=== PATIENT | female | born 1955 | race Caucasian/White ===

== ENCOUNTER 2019-12-10 17:10 | Outpatient (REF) | payer OTHER, SELFPAY ==
--- NOTE | 2019-12-10 17:13 | CT_ITS ---
EXAMINATION: CT SINUS WITHOUT CONTRAST CLINICAL INFORMATION: Polyp of nasal cavity. Deviated nasal septum. COMPARISON: None TECHNIQUE: 2 mm thin axial and reformatted 2 mm thin sagittal and coronal images of sinuses were obtained. This CT examination was performed using dose optimization techniques as appropriate, variously including the following: *Automated exposure control *Adjustment of mA and/or kV according to patient size (this includes techniques or standardized protocols for targeted exams where dose is matched to indication/reason for exam; i.e. extremities or head) *Use of iterative reconstruction technique DLP: 89 mGy-cm FINDINGS: There is normal aeration of bilateral frontal, sphenoid, ethmoid and maxillary sinuses without mucoperiosteal thickening or air-fluid levels. Bilateral ostiomeatal complex and frontoethmoidal recesses are widely patent. The bony sinus perales are intact. The cribriform plate appears symmetrical. The mary falciform is midline and appears unremarkable. NASAL CAVITY/NASOPHARYNX: The nasal cavity is clear. There is minimal deviation nasal septum to the left without a bony spur. The turbinates are symmetrical. No soft tissue mass seen in the nasal cavity or the nasopharynx. ADDITIONAL RELEVANT FINDINGS: No periapical disease is seen. The TMJs articulate normally. The orbits and skull base soft tissues are unremarkable. The middle ear cavities and mastoid air cells are clear. Limited evaluation demonstrates no acute intracranial findings. CT/CT sinus wo con IMPRESSION: Unremarkable CT sinus exam.
== END 2019-12-10 17:11 ==
LOC: HO.CT 17:10
PROVIDERS: Visit Provider Otolaryngology
DX: J33.0 Polyp of nasal cavity (principal); J34.2 Deviated nasal septum
CPT/HCPCS: 70486

== ENCOUNTER 2019-12-19 10:56 | Outpatient (REF) | payer OTHER, SELFPAY | END 2019-12-19 10:57 | disposition home or self-care (01) | LOC: HO.LNP 10:56 | PROVIDERS: Visit Provider Internal Medicine | DX: Z20.828 Contact with and (suspected) exposure to other viral communicable diseases (principal); J34.89 Other specified disorders of nose and nasal sinuses; R51.9 Headache, unspecified | CPT/HCPCS: U0003 ==

== ENCOUNTER 2020-03-16 13:55 | Outpatient (REF) | payer OTHER, SELFPAY ==
[2020-03-16 15:09] LABS: Estimated Average Glucose 151 mg/dL; Hemoglobin A1c % 6.9 %
[2020-03-16 15:12] LABS: Alanine Aminotransferase 44 U/L (0-31); Albumin Level 4.4 g/dL (3.5-5.0); Alkaline Phosphatase 76 U/L (39-117); Anion Gap 13 (12-20); Aspartate Amino Transferase 32 U/L (5-31); Bilirubin Total 0.6 mg/dL (0.0-1.0); Blood Urea Nitrogen 18 mg/dL (9-16); Calcium 9.6 mg/dL (8.4-10.2); Carbon Dioxide 28 mmol/L (22-29); Chloride 105 mmol/L (96-108); Estimated Glomerular Filt Rate > 60; Glucose Random 119 mg/dL (60-115); Potassium 4.7 mmol/L (3.3-5.1); Sodium 141 mmol/L (135-145); Total Protein 6.7 g/dL (6.5-8.0)
[2020-03-16 15:35] LABS: Creatinine Urine 177.35 mg/dL; Microalbum/Creatinine Ratio Ur 9.5 ug/mg cr
== END 2020-03-16 13:56 | disposition home or self-care (01) ==
LOC: HO.LAB 13:55
PROVIDERS: PCP Internal Medicine; Visit Provider Internal Medicine
DX: E11.9 Type 2 diabetes mellitus without complications (principal); I10 Essential (primary) hypertension; K58.9 Irritable bowel syndrome, unspecified
CPT/HCPCS: 36415; 80053; 82043; 83036

== ENCOUNTER 2020-09-04 20:37 | Emergency (ER) | payer OTHER, SELFPAY ==
--- NOTE | ~2020-09-04 | CT_ITS ---
EXAMINATION: CT ABDOMEN AND PELVIS WITH CONTRAST CLINICAL INFORMATION: Periumbilical pain COMPARISON: 12/31/2018 TECHNIQUE: Multidetector volumetric images were obtained from the superior aspect of the liver through the pubic symphysis following administration 85 mL of Omnipaque 350 intravenous contrast. Sagittal and coronal reformatted images were obtained on the technologist's workstation. Oral contrast: No This CT examination was performed using dose optimization techniques as appropriate, variously including the following: *Automated exposure control *Adjustment of mA and/or kV according to patient size (this includes techniques or standardized protocols for targeted exams where dose is matched to indication/reason for exam; i.e. extremities or head) *Use of iterative reconstruction technique DLP: 831 mGy-cm FINDINGS: LUNG BASES: The visualized lung bases are unremarkable. LIVER, GALLBLADDER, AND BILIARY TREE: The liver demonstrates hypoattenuation suggesting steatosis. No focal hepatic lesion or biliary ductal dilatation is present. Patient is status post cholecystectomy. PANCREAS: Unremarkable. SPLEEN: Unremarkable. ADRENAL GLANDS: Unremarkable. KIDNEYS AND URETERS: The kidneys are normal in size, shape, and attenuation. Lobulated contour noted bilaterally. No hydronephrosis, hydroureter, or obstructing calculi seen. No perinephric stranding. BLADDER: Unremarkable. GASTROINTESTINAL TRACT: The small and large bowel are unremarkable. The appendix is suspected to be collapsed. No free fluid or free air is seen. ABDOMINAL WALL: No significant hernia is appreciated. LYMPH NODES: Normal. VASCULAR: Scattered atherosclerotic calcifications are noted. PELVIC VISCERA: Patient is status post hysterectomy. OSSEOUS STRUCTURES: Degenerative changes are noted in the spine. CT/CT abdomen pelvis w con IMPRESSION: No acute findings identified in the abdomen/pelvis.
[2020-09-04 20:44] VITALS: BP 160/79; PULSE 65; RESP 20; TEMP 37.1; O2SAT 98; BMI 28.3
[2020-09-04 21:14] LABS: MANUAL DIFF FLAG NO
[2020-09-04 21:15] LABS: Basophils Absolute Auto 0.1 X10*3/uL (0.0-0.2); Basophils Percent Auto 0.6 % (0-2); Eosinophils Absolute Auto 0.3 X10*3/uL (0.0-0.4); Eosinophils Percent Auto 3.5 % (0-4); Hematocrit 41.4 % (37-47); Hemoglobin 14.3 g/dl (12.0-16.0); Imm Gran Abs Auto 0.03 X10*3/uL (0.00-0.03); Imm Gran Pct Auto 0.3 % (0.0-0.4); Lymphocytes Absolute Auto 2.6 X10*3/uL (1.2-4.9); Lymphocytes Percent Auto 29.2 % (20-40); Mean Corpuscular HGB Conc 34.5 g/dl (31.0-35.0); Mean Corpuscular Hemoglobin 31.4 pg (27.0-33.0); Mean Corpuscular Volume 90.8 fL (80-98); Mean Platelet Volume 10.5 fL (9.4-12.3); Monocytes Absolute Auto 0.6 X10*3/uL (0.1-1.2); Monocytes Percent Auto 6.8 % (2-11); Neutrophils Absolute Auto 5.3 X10*3/uL (2.0-8.3); Neutrophils Percent Auto 59.6 % (45-73); Platelet Count 155 X10*3/uL (160-400); Red Blood Count 4.56 X10*6/uL (4.20-5.50); Red Cell Distribution Width 13.3 % (11.0-16.0); White Blood Count 8.8 X10*3/uL (4.8-10.8)
[2020-09-04 21:42] LABS: Alanine Aminotransferase 46 U/L (0-31); Albumin Level 4.1 g/dL (3.5-5.0); Alkaline Phosphatase 83 U/L (39-117); Anion Gap 14 (12-20); Aspartate Amino Transferase 34 U/L (5-31); Bilirubin Direct 0.2 mg/dL (0.0-0.5); Bilirubin Total 0.4 mg/dL (0.0-1.0); Blood Urea Nitrogen 14 mg/dL (9-16); Calcium 10.5 mg/dL (8.4-10.2); Carbon Dioxide 27 mmol/L (22-29); Chloride 106 mmol/L (96-108); Estimated Glomerular Filt Rate 57; Glucose Random 188 mg/dL (60-115); Lipase 79 U/L (8-78); Sodium 143 mmol/L (135-145); Total Protein 6.5 g/dL (6.5-8.0)
--- NOTE | 2020-09-04 22:17 | ED_ITS ---
HPI - Abdominal Pain General Chief Complaint: Abdominal Pain Stated Complaint: ABD PAIN Time Seen by Provider: 09/04/20 20:38 Source: patient Mode of arrival: ambulatory Limitations: no limitations History of Present Illness HPI narrative: Patient comes emergency room complaining of periumbilical pain. Patient states started yesterday, states now it is radiating towards the right lower quadrant and towards the back. Patient denies vomiting or diarrhea. Patient states the pain is sharp, intermittent, at this time she has mild discomfort but no significant pain. Related Data Previous Rx's Medication Instructions Recorded hyoscyamine sulfate 0.125 mg PO QID #10 tab 09/05/20 simethicone 125 mg PO DAILY PRN #10 cap 09/05/20 Allergies Allergy/AdvReac Type Severity Reaction Status Date / Time sulfamethoxazole Allergy Intermediate HIVES Verified 09/04/20 20:43 [From BACTRIM] trimethoprim [From BACTRIM] Allergy Intermediate HIVES Verified 09/04/20 20:43 Sulfa (Sulfonamide Allergy Unknown Hives Verified 09/04/20 20:43 Antibiotics) Review of Systems Review of Systems Constitutional : No Weight loss, No Fever, No Chills, No Night Sweats, No Fatigue, No Malaise ENT/Mouth : No Hearing loss, No Ear Pain, No Nasal Congestion, No Sinus Pain, No Hoarseness, No sore throat, No Rhinorrhea, No Swallowing Difficulty Eyes: No Eye Pain, No Swelling, No Redness, No Foreign Body, No Discharge, No Vision Changes Cardiovascular : No Chest Pain, No SOB, No Dyspnea on Exertion, No Orthopnea, No Edema, No Palpitations Respiratory : No Cough, No Sputum, No Wheezing, No Smoke Exposure, No Dyspnea Gastrointestinal : No Nausea, No Vomiting, No Diarrhea, No Constipation, complaining of periumbilical pain radiating towards the back and right lower quadrant, No Hematochezia, No Melena Genitourinary : no irregular bleeding, No Dysuria, No Urinary Frequency, No Hematuria, No Urinary Incontinence, No Urgency, No Flank Pain, No Urinary Flow Changes, No Hesitancy Musculoskeletal : No joint pain, No Myalgias, No Joint Swelling Skin : No Skin Lesions, No rash Neuro : No Weakness, No Numbness, No Paresthesias, No Loss of Consciousness, No Dizziness, No Headache Psych : No Anxiety/Panic, No Depression, No SI/HI/AH/VH, No Social Issues, Heme/Lymph: No Bruising, No Bleeding,No Lymphadenopathy Endocrine : No Polyuria, No Polydipsia, No Temperature Intolerance Physical Exam Vital Signs: Vital Signs: Last Vital Signs Temp 97.5 F 09/04/20 22:29 Pulse 55 09/04/20 22:29 Resp 16 09/04/20 22:29 BP 169/91 H 09/04/20 22:29 Pulse Ox 97 09/04/20 22:29 Body Mass Index 28.3 Appearance: Alert. Oriented X3. No acute distress. Eyes: Pupils equal, round and reactive to light. ENT: Pharynx normal. Neck: Normal inspection. Neck supple. No lymph nodes noted. No crepitus CVS: Normal heart rate and rhythm. Pulses normal. Normal S1 and S2 Respiratory: No respiratory distress. Breath sounds normal. No Wheezing. No rales Abdomen: Soft , mild discomfort on deep palpation over the periumbilical area, no pain no McBurney's point, No rigidity. No distention. No flank pain bilaterally Skin: Skin warm and dry. Normal skin color. Normal skin turgor. Extremities: No lower extremity edema. No lower extremity edema. No Lacerations. No Rash Neuro: Oriented X 3. No motor deficit. No sensory deficit. Moving all extermities. No slurred speech. Course Course Course Narrative: I discussed with the patient that her labs and CT scan do not show any acute pathology. Patient's lipase is slightly bumped to 79, normal level 78, unlikely to be pancreatitis. At this time, patient states that she feels much better, no abdominal pain, only feels a bit bloated MDM - Abdominal Pain Lab Data Result diagrams: 09/04/20 21:08 09/04/20 21:08 Labs: Lab Results 09/04/20 09/04/20 09/05/20 Range/Units 21:08 21:08 00:09 WBC 8.8 (4.8-10.8) X10*3/uL RBC 4.56 (4.20-5.50) X10*6/uL Hgb 14.3 (12.0-16.0) g/dl Hct 41.4 (37-47) % MCV 90.8 (80-98) fL MCH 31.4 (27.0-33.0) pg MCHC 34.5 (31.0-35.0) g/dl RDW 13.3 (11.0-16.0) % Plt Count 155 L (160-400) X10*3/uL MPV 10.5 (9.4-12.3) fL Immature Gran % (Auto) 0.3 (0.0-0.4) % Neut % (Auto) 59.6 (45-73) % Lymph % (Auto) 29.2 (20-40) % [place] % (Auto) 6.8 (2-11) % Eos % (Auto) 3.5 (0-4) % Baso % (Auto) 0.6 (0-2) % Lymph # (Auto) 2.6 (1.2-4.9) X10*3/uL [place] # (Auto) 0.6 (0.1-1.2) X10*3/uL Eos # (Auto) 0.3 (0.0-0.4) X10*3/uL Baso # (Auto) 0.1 (0.0-0.2) X10*3/uL Abs Immat Gran (auto) 0.03 (0.00-0.03) X10*3/uL Absolute Neuts (auto) 5.3 (2.0-8.3) X10*3/uL Absolute Nucleated RBC 0.000 (0.0-0.012) X10*3/uL Nucleated RBC % (auto) 0.0 (0.0-0.2) /100WBC Sodium 143 (135-145) mmol/L Potassium 4.0 (3.3-5.1) mmol/L Chloride 106 (96-108) mmol/L Carbon Dioxide 27 (22-29) mmol/L Anion Gap 14 (12-20) BUN 14 (9-16) mg/dL Creatinine 0.98 (0.5-1.4) mg/dL Estim Creat Clear Calc 58.0 Estimated GFR 57 Random Glucose 188 H D (60-115) mg/dL Calcium 10.5 H D (8.4-10.2) mg/dL Total Bilirubin 0.4 (0.0-1.0) mg/dL Direct Bilirubin 0.2 (0.0-0.5) mg/dL AST 34 H (5-31) U/L ALT 46 H (0-31) U/L Alkaline Phosphatase 83 (39-117) U/L Total Protein 6.5 (6.5-8.0) g/dL Albumin 4.1 (3.5-5.0) g/dL Lipase 79 H (8-78) U/L Urine Color YELLOW Urine Appearance CLEAR Urine pH 6.0 (5.0-8.0) Ur Specific [place] 1.010 (1.005-1.025) Urine Protein NEG (NEG-TRACE) MG/DL Urine Glucose (UA) NEG (NEG) MG/DL Urine Ketones NEG (NEG) MG/DL Urine Blood 1+ H (NEG) Urine Nitrite NEG (NEG) Ur Leukocyte Esterase 1+ H (NEG) Urine RBC 5-9 H (0) /HPF Urine WBC 1-4 (0-4) /HPF Ur Squamous Epith Cells 2+ /LPF Urine Bacteria TRACE /LPF Imaging Data CT scan - abdomen: Radiologist's impression: FINDINGS: LUNG BASES: The visualized lung bases are unremarkable. LIVER, GALLBLADDER, AND BILIARY TREE: The liver demonstrates hypoattenuation suggesting steatosis. No focal hepatic lesion or biliary ductal dilatation is present. Patient is status post cholecystectomy. PANCREAS: Unremarkable. SPLEEN: Unremarkable. ADRENAL GLANDS: Unremarkable. KIDNEYS AND URETERS: The kidneys are normal in size, shape, and attenuation. Lobulated contour noted bilaterally. No hydronephrosis, hydroureter, or obstructing calculi seen. No perinephric stranding. BLADDER: Unremarkable. GASTROINTESTINAL TRACT: The small and large bowel are unremarkable. The appendix is suspected to be collapsed. No free fluid or free air is seen. ABDOMINAL WALL: No significant hernia is appreciated. LYMPH NODES: Normal. VASCULAR: Scattered atherosclerotic calcifications are noted. PELVIC VISCERA: Patient is status post hysterectomy. OSSEOUS STRUCTURES: Degenerative changes are noted in the spine. CT/CT abdomen pelvis w con IMPRESSION: No acute findings identified in the abdomen/pelvis. Discharge Plan Discharge Clinical Impression: Abdominal pain Qualifiers: Abdominal location: unspecified location Qualified Code(s): R10.9 - Unspecified abdominal pain Patient Disposition: Home, Self-Care Instructions: Abdominal Pain (ED) Additional Instructions: Please follow-up with your primary care physician tomorrow. If you have any worsening or new symptoms, please return to the emergency room or call 911 Prescriptions: New simethicone 125 mg capsule 125 mg PO DAILY PRN (Reason: abdominal distention) Qty: 10 RF: 0 hyoscyamine sulfate 0.125 mg tablet 0.125 mg PO QID Qty: 10 RF: 0 PMFSH Past Medical History Medical History Allergies Diabetes Hypertension Social History Social History Advance Directives: No Advance Directives Information Provided: Yes
[2020-09-04 22:29] VITALS: BP 169/91; PULSE 55; RESP 16; TEMP 36.4; O2SAT 97
[2020-09-04] MEDS: iohexoL 350 MG/ML 100 ML INFUS..BTL 85 ML IV (23:45)
[2020-09-05 00:26] LABS: Glucose Urine UA NEG (NEG); Leukocyte Esterase Urine 1+ (NEG); Nitrite Urine NEG (NEG); UACC Culture Trigger YES; Urine Blood 1+ (NEG); Urine Ketones NEG (NEG); Urine Protein NEG (NEG-TRACE)
[2020-09-05 00:38] LABS: Appearance Urine CLEAR; Color Urine YELLOW
[2020-09-05 00:42] LABS: Bacteria Urine TRACE /LPF; Squamous Epithelial Cell Urine 2+ /LPF
== END 2020-09-05 01:13 | disposition home or self-care (01) ==
PROVIDERS: Emergency Provider Emergency Medicine; PCP Internal Medicine
DX: R10.9 Unspecified abdominal pain (principal); E11.9 Type 2 diabetes mellitus without complications; I10 Essential (primary) hypertension
CPT/HCPCS: 36415; 74177; 80053; 80076; 81001; 81003; 83690; 85025; 87086; 99284; Q9967

== ENCOUNTER 2020-11-06 07:53 | Outpatient (REF) | payer OTHER, SELFPAY ==
--- NOTE | ~2020-11-06 | MM_ITS ---
EXAMINATION: MM SCREENING DIGITAL BREAST TOMOSYNTHESIS, BILATERAL CLINICAL INFORMATION: Screening. Asymptomatic. The lifetime risk of breast cancer based on the Tyrer-Cuzick Model is 11%. COMPARISON: Mammography: 08/21/2018, 07/25/2017, 06/15/2016 TECHNIQUE: Digital breast tomosynthesis is performed in both the craniocaudal and mediolateral oblique views along with computer-aided detection (CAD). Synthesized 2D images are generated from the tomosynthesis. FINDINGS: There are scattered areas of fibroglandular density (ACR BI-RADS breast composition Category b). Breast tissue composition borders on predominantly fatty. The left breast shows no interval mass or architectural abnormality or developing density. Neither breast shows abnormal calcifications. The bilateral axilla and skin contours are unremarkable. The right breast has a new focal asymmetric density posterior 3:00 position 10.5 cm from nipple measuring 7 x 4 x 3 mm. Patient will be recalled for additional imaging. MM/MM tomosynthesis screening BI IMPRESSION: 1. Right: New focal asymmetric density posterior 3:00 position under 1 cm. 2. Left: There are no significant changes from prior study. ASSESSMENT: BI-RADS 0: Incomplete - Need Additional Imaging Evaluation RECOMMENDATION: 1. Additional views of the right breast for margins (3D spot CC; 3D spot ML). 2. Targeted ultrasound right breast. 3. Radiology department staff will contact the patient for additional imaging. This patient's information was entered into a reminder system with a target due date for their next mammogram.
== END 2020-11-06 07:54 | disposition home or self-care (01) ==
LOC: HO.MAMMO 07:53
PROVIDERS: PCP Internal Medicine; Visit Provider Internal Medicine
DX: Z12.31 Encounter for screening mammogram for malignant neoplasm of breast (principal)
CPT/HCPCS: 77063; 77067

== ENCOUNTER 2020-11-24 14:14 | Outpatient (REF) | payer OTHER, SELFPAY ==
--- NOTE | ~2020-11-24 | MM_ITS ---
EXAMINATION: MM DIAGNOSTIC DIGITAL BREAST TOMOSYNTHESIS, RIGHT CLINICAL INFORMATION: Focal asymmetric density posterior 3:00 position COMPARISON: Mammography: November 06, 2020 and studies dating back to July 26, 2011 TECHNIQUE: Digital breast tomosynthesis is performed. 2D images are generated from the tomosynthesis. The following views are obtained: 90 degree medial lateral and spot compression views in mediolateral oblique and craniocaudal projections. FINDINGS: There are scattered areas of fibroglandular density (ACR BI-RADS breast composition Category b). Additional views seem to show changing in appearance of the density in craniocaudal projection with the lesion measuring approximately 6 x 2 x 2 mm in size. At the time of the study I did not get an ultrasound due to changeable appearance of the density however on further review at time of dictation I think ultrasound evaluation is necessary for complete evaluation of the lesion. Radiology staff will notify patient to obtain this study. MM/MM tomosynthesis added views R IMPRESSION: Incomplete evaluation of the right breast due to not obtaining ultrasound at time of the mammographic study. ASSESSMENT: BI-RADS 0: Incomplete - Need Additional Imaging Evaluation RECOMMENDATION: Right breast ultrasound
== END 2020-11-24 14:15 | disposition home or self-care (01) ==
LOC: HO.MAMMO 14:14
PROVIDERS: Visit Provider Internal Medicine
DX: R92.2 Inconclusive mammogram (principal)
CPT/HCPCS: 77061; 77065

== ENCOUNTER 2020-11-30 12:41 | Outpatient (REF) | payer OTHER, SELFPAY ==
--- NOTE | ~2020-11-30 | US_ITS ---
EXAMINATION: US DIAGNOSTIC ULTRASOUND BREAST, RIGHT CLINICAL INFORMATION: Short linear asymmetric density on mammography. Assess for ultrasound correlate. COMPARISON: 11/24/2020, 11/06/2020 (BI-RADS 0), 03/18/2015, 03/13/2015. TECHNIQUE: Ultrasound right breast is targeted to the medial aspect and inferior medial quadrant. Grayscale imaging and color Doppler are performed without and with harmonics. Patient is imaged with arm up and arm down and right posterior oblique. FINDINGS: There is no cystic or solid mass or architectural abnormality. No focal duct ectasia. No ultrasound correlate for recent mammography finding. Review of the recent diagnostic mammography shows short circumscribed linear focal asymmetric density posterior inferior medial breast. Finding is less conspicuous on the additional views. No spiculation or associated calcification. Results and management options were discussed with the patient. Short interval follow-up right mammography will be performed. US/US breast RT limited IMPRESSION: No ultrasound correlate for the short linear asymmetric density posterior medial right breast noted on recent imaging. ASSESSMENT: BI-RADS 3: Probably Benign RECOMMENDATION: Diagnostic right mammography in 6 months. This patient's information was entered into a reminder system with a target due date for their next mammogram.
== END 2020-11-30 12:42 | disposition home or self-care (01) ==
LOC: HO.MAMMO 12:41
PROVIDERS: Visit Provider Internal Medicine
DX: R92.2 Inconclusive mammogram (principal)
CPT/HCPCS: 76642

== ENCOUNTER 2020-12-20 15:14 | Outpatient (REF) | payer OTHER, SELFPAY ==
[2020-12-20 15:29] LABS: MANUAL DIFF FLAG NO
[2020-12-20 16:07] LABS: Basophils Percent Auto 0.6 % (0-2); Eosinophils Absolute Auto 0.2 X10*3/uL (0.0-0.4); Eosinophils Percent Auto 3.7 % (0-4); Hematocrit 39.9 % (37.0-47.0); Hemoglobin 13.4 g/dl (12.0-16.0); Imm Gran Abs Auto 0.02 X10*3/uL (0.00-0.03); Imm Gran Pct Auto 0.3 % (0.0-0.4); Lymphocytes Absolute Auto 2.1 X10*3/uL (1.2-4.9); Lymphocytes Percent Auto 33.2 % (20-40); Mean Corpuscular HGB Conc 33.6 g/dl (31.0-35.0); Mean Corpuscular Hemoglobin 30.9 pg (27.0-33.0); Mean Corpuscular Volume 92.1 fL (80.0-98.0); Mean Platelet Volume 10.6 fL (9.4-12.3); Monocytes Absolute Auto 0.5 X10*3/uL (0.1-1.2); Monocytes Percent Auto 7.7 % (2-11); Neutrophils Absolute Auto 3.4 x10*3/uL (2.0-8.3); Neutrophils Percent Auto 54.5 % (45-73); Platelet Count 143 X10*3/uL (160-400); Red Blood Count 4.33 X10*6/uL (4.20-5.50); Red Cell Distribution Width 13.4 % (11.0-16.0); White Blood Count 6.2 X10*3/uL (4.8-10.8)
[2020-12-20 16:11] LABS: Estimated Average Glucose 203 mg/dL; Hemoglobin A1c % 8.7 %
[2020-12-20 16:24] LABS: Alanine Aminotransferase 39 U/L (0-31); Alkaline Phosphatase 81 U/L (39-117); Anion Gap 12 (12-20); Aspartate Amino Transferase 34 U/L (5-31); Bilirubin Total 0.5 mg/dL (0.0-1.0); Blood Urea Nitrogen 13 mg/dL (9-16); Calcium 9.7 mg/dL (8.4-10.2); Carbon Dioxide 27 mmol/L (22-29); Chloride 106 mmol/L (96-108); Estimated Glomerular Filt Rate > 60; Glucose Random 219 mg/dL (60-115); Potassium 4.1 mmol/L (3.3-5.1); Sodium 141 mmol/L (135-145); Total Protein 6.3 g/dL (6.5-8.0)
[2020-12-20 17:55] LABS: Appearance Urine HAZY; Color Urine YELLOW; Creatinine Urine 194.77 mg/dL; Glucose Urine UA NEG (NEG); Leukocyte Esterase Urine TRACE (NEG); Nitrite Urine NEG (NEG); PH 5.5 (5.0-8.0); Specific Gravity - Urine >= 1.030 (1.005-1.025); Urine Blood NEG (NEG); Urine Ketones NEG (NEG); Urine Protein NEG (NEG-TRACE)
[2020-12-20 18:03] LABS: Microalbum/Creatinine Ratio Ur 8.7 ug/mg cr
[2020-12-20 19:30] LABS: Bacteria Urine TRACE /LPF; Calcium Oxalate Crystals Urine 1+ /LPF; Squamous Epithelial Cell Urine 4+ /LPF
[2020-12-23 16:35] LABS: Gliadin Deamidated IgA Ab <1.0 U/mL; Gliadin Deamidated IgG Ab <1.0 U/mL; Transglutaminase Ab IgG <1.0 U/mL
== END 2020-12-20 15:15 | disposition home or self-care (01) ==
LOC: HO.LAB 15:14
PROVIDERS: PCP Internal Medicine; Visit Provider Internal Medicine
DX: E11.9 Type 2 diabetes mellitus without complications (principal); I10 Essential (primary) hypertension; K58.9 Irritable bowel syndrome, unspecified; K21.9 Gastro-esophageal reflux disease without esophagitis
CPT/HCPCS: 36415; 80053; 81001; 82043; 83036; 83516; 85025

== ENCOUNTER 2021-02-22 10:35 | Outpatient (REF) | payer OTHER, SELFPAY ==
[2021-02-22 14:10] LABS: Estimated Average Glucose 151 mg/dL; Hemoglobin A1c % 6.9 %
[2021-02-22 14:37] LABS: Alanine Aminotransferase 41 U/L (0-31); Albumin Level 4.2 g/dL (3.5-5.0); Alkaline Phosphatase 68 U/L (39-117); Anion Gap 13 (12-20); Aspartate Amino Transferase 35 U/L (5-31); Bilirubin Total 0.5 mg/dL (0.0-1.0); Blood Urea Nitrogen 23 mg/dL (9-16); Calcium 9.8 mg/dL (8.4-10.2); Carbon Dioxide 23 mmol/L (22-29); Chloride 110 mmol/L (96-108); Estimated Glomerular Filt Rate 58; Glucose Random 129 mg/dL (60-115); Sodium 142 mmol/L (135-145); Total Protein 6.7 g/dL (6.5-8.0)
== END 2021-02-22 10:36 | disposition home or self-care (01) ==
LOC: HO.10HDL 10:35
PROVIDERS: Visit Provider Internal Medicine
DX: E11.9 Type 2 diabetes mellitus without complications (principal); I10 Essential (primary) hypertension; K58.9 Irritable bowel syndrome, unspecified; R79.89 Other specified abnormal findings of blood chemistry
CPT/HCPCS: 36415; 80053; 83036

== ENCOUNTER 2021-03-14 09:19 | Day surgery (SDC) | payer OTHER, SELFPAY ==
[2021-03-08 14:57] VITALS: BMI 30.6
[2021-03-09 10:16] VITALS: BMI 30.1
--- NOTE | 2021-03-11 10:35 | P.CONAN_ITS ---
Documented by User: Ann Greenwood NP 03/11/21 10:36 HPI - Anesthesia Eval Consult details Narrative: 66yo F for Upper Endoscopy and Colonoscopy [facility] Past Medical History Medical History (Updated 03/09/21 @ 10:16 by Elza Palacio, LONNIE) Arthritis Diabetes Environmental allergies Hx of cervical cancer Hypertension IBS (irritable bowel syndrome) Murmur, cardiac Seasonal allergies Surgical History Surgical History (Updated 03/08/21 @ 14:42 by Elza Palacio, RN) History of total abdominal hysterectomy Hx of cholecystectomy Hx of colonoscopy Social History Social History (Updated 03/09/21 @ 10:20 by Elza Palacio, LONNIE) Are you a primary clinical care coordinator to a significant other at home: No Do you presently have visiting nurse or other home services: No Patient Tobacco Use Status: Never used Tobacco Use of substances other than those prescribed or required for medical reasons: No Are you DNR?: No Advance Directives: No Advance Directives Information Provided: Yes Advance Directives on File: No Recently lost weight without trying: Yes How much weight loss: 2-13 pounds Eating poorly because of decreased appetite: Yes Nutrition screen score: 4 Meds Allergies Allergy/AdvReac Type Severity Reaction Status Date / Time sulfamethoxazole Allergy Intermediate HIVES Verified 03/09/21 10:14 [From BACTRIM] trimethoprim [From Allergy Intermediate HIVES Verified 03/09/21 10:14 BACTRIM] Sulfa (Sulfonamide Allergy Unknown Hives Verified 03/09/21 10:14 Antibiotics) Home Medications Medication Instructions Recorded Confirmed Last Taken Type atenolol 25 mg 1 tab PO DAILY 03/08/21 03/08/21 Unknown History tablet azelastine 205.5 1 spray 03/08/21 03/08/21 Unknown History mcg (0.15 %) INTRANASAL BID nasal spray fluticasone 1 spray 03/08/21 03/08/21 Unknown History propionate 50 INTRANASAL BID mcg/actuation nasal spray,suspension glipizide 2.5 mg 2.5 mg PO DAILY 03/08/21 03/08/21 Unknown History tablet, extended release 24 hr metformin 500 mg 1 tab PO BID 03/08/21 03/08/21 Unknown History tablet omeprazole 20 mg 20 mg PO DAILY 03/09/21 03/09/21 Unknown History capsule,delayed release Exam Exam Date and Time: March 11, 2021 1035 Height,Weight and Vital Signs: Height 5 ft 3 in Weight 77.111 kg Pertinent Lab Results Pertinent Lab Results: Laboratory Tests 12/20/20 02/22/21 15:28 10:40 WBC 6.2 Hgb 13.4 Hct 39.9 Plt Count 143 L Sodium 142 Potassium 4.0 Chloride 110 H Carbon Dioxide 23 BUN 23 H Creatinine 0.96 Assessment and Plan Assessment Anesthesia Assessment: Chart Reviewed Documented by User: Christina Mendoza MD 03/14/21 10:31 [facility] Past Medical History Medical History (Updated 03/09/21 @ 10:16 by Elza Palacio, RN) Arthritis Diabetes Environmental allergies Hx of cervical cancer Hypertension IBS (irritable bowel syndrome) Murmur, cardiac Seasonal allergies Family History Family history of problems with anesthesia: No Surgical History Surgical History (Updated 03/08/21 @ 14:42 by Elza Palacio, RN) History of total abdominal hysterectomy Hx of cholecystectomy Hx of colonoscopy History of Problems with Anesthesia: No Social History Social History (Updated 03/09/21 @ 10:20 by Elza Palacio, RN) Are you a primary clinical care coordinator to a significant other at home: No Do you presently have visiting nurse or other home services: No Patient Tobacco Use Status: Never used Tobacco Use of substances other than those prescribed or required for medical reasons: No Are you DNR?: No Advance Directives: No Advance Directives Information Provided: Yes Advance Directives on File: No Recently lost weight without trying: Yes How much weight loss: 2-13 pounds Eating poorly because of decreased appetite: Yes Nutrition screen score: 4 Meds Allergies Allergy/AdvReac Type Severity Reaction Status Date / Time sulfamethoxazole Allergy Intermediate HIVES Verified 03/09/21 10:14 [From BACTRIM] trimethoprim [From Allergy Intermediate HIVES Verified 03/09/21 10:14 BACTRIM] Sulfa (Sulfonamide Allergy Unknown Hives Verified 03/09/21 10:14 Antibiotics) Home Medications Medication Instructions Recorded Confirmed Last Taken Type atenolol 25 mg 1 tab PO DAILY 03/08/21 03/08/21 Unknown History tablet azelastine 205.5 1 spray 03/08/21 03/08/21 Unknown History mcg (0.15 %) INTRANASAL BID nasal spray fluticasone 1 spray 03/08/21 03/08/21 Unknown History propionate 50 INTRANASAL BID mcg/actuation nasal spray,suspension glipizide 2.5 mg 2.5 mg PO DAILY 03/08/21 03/08/21 Unknown History tablet, extended release 24 hr metformin 500 mg 1 tab PO BID 03/08/21 03/08/21 Unknown History tablet omeprazole 20 mg 20 mg PO DAILY 03/09/21 03/09/21 Unknown History capsule,delayed release Exam Airway Mallampati Class: II TM Dist: >3cm Neck ROM: Full Heart: rrr Lungs: cta Assessment and Plan Assessment Anesthesia Assessment: Anesthesia Plan Discussed and Chart Reviewed Final Anesthetic Review Family History of Problems with Anesthesia: No History of Problems with Anesthesia: No NPO: Yes ASA Class: II Final Preanesthetic Review: No Changes in Pt Med Stat, Meds/Allgs Chart Reviewed and Consent Obtained/Reviewed Patient Risk: Intermediate Procedure Risk: Intermediate Anesthetic Plan Anesthetic Plan: MAC: Disposition: Standard PACU
[2021-03-14] MEDS: Lactated Ringers 1,000 ML 100 ML IVCONT (10:36)
[2021-03-14 10:42] LABS: Glucose, Whole Blood 104 mg/dL (60-115)
[2021-03-14 11:46] VITALS: BP 118/67; PULSE 61; RESP 16; TEMP 36.3; O2SAT 98
--- NOTE | 2021-03-14 11:54 | PM.OP ---
Brief Operative Note Date of Service: 03/14/21 Pre-op diagnosis: GERD, Screening, Change in Bowel habits Post-op diagnosis: other (Gastritis, R/O Celiac disease, R/O Microscopic colits, Rectal polyp) Procedure: EGD with biopsies, Colonoscopy to the cecum and TI with bx/removal of polyp, and biopsies Surgeon: Lanre Palomo Anesthesia: MAC Was an Logging Tractor Operator used for this Procedure?: No Estimated blood loss (mL): 2.0 Pathology: other (A. Descending duodenum B. Gastric antrum C. Ascending colon D. Descending coion E. Rectal polyp) Condition: stable Disposition: PACU
[2021-03-14 12:01] VITALS: BP 122/66; PULSE 53; RESP 18; TEMP 36.3; O2SAT 98
--- NOTE | 2021-03-14 22:24 | OP_ITS ---
SURGEON: Lanre Palomo MD INDICATIONS: The patient presents for evaluation of gastroesophageal reflux, irregular bowel movements, personal history of tubular adenoma of the colon, and colorectal cancer screening. Full consent was obtained from her for both procedures, including risks of bleeding and perforation. PREOPERATIVE DIAGNOSIS: POSTOPERATIVE DIAGNOSIS: PROCEDURE PERFORMED: Esophagogastroduodenoscopy with biopsies, colonoscopy to the cecum and terminal ileum with biopsies, and biopsy and removal of polyp. ESTIMATED BLOOD LOSS: COMPLICATIONS: ANESTHESIA: Monitored anesthesia care. ASSISTANTS: SPECIMENS: PREOPERATIVE DIAGNOSES: Gastroesophageal reflux, change in bowel habits, colorectal cancer screening, and personal history of tubular adenoma of the colon. POSTOPERATIVE DIAGNOSES: Gastroesophageal reflux, change in bowel habits, colorectal cancer screening, personal history of tubular adenoma of the colon, small hiatal hernia, gastritis, rule out celiac disease, colon polyp, rule out microscopic colitis, diverticulosis, internal and external hemorrhoids. DESCRIPTION OF PROCEDURE: The patient was placed in the left lateral decubitus position. The Olympus video gastroscope was passed in the posterior oropharynx and upper esophagus under direct vision. The scope was passed slowly into the distal esophagus. The gastroesophageal junction appeared normal at 35 cm. There was no sign of any esophagitis nor Aguirre esophagus. There was a small hiatal hernia. The scope was advanced to pylorus and the duodenum was cannulated in the descending portion. The duodenum including the bulb appeared normal without mass or ulceration. Biopsies were obtained from the descending duodenum. The scope was withdrawn back in the stomach. The gastric antrum had some mild areas of gastritis with erythema, edema, and some friability, but there were no erosions or ulcerations. There was good peristalsis. The scope was retroflexed visualizing the proximal stomach carefully, which appeared normal, without any sign of mass or ulceration. The scope was straightened. Biopsies were obtained from the gastric antrum. The scope was withdrawn back in the esophagus. The esophageal mucosa appeared normal. The scope was withdrawn from the patient. She was turned around for the colonoscopy. The digital rectal exam revealed external hemorrhoids. The Olympus video pediatric colonoscope was entered into the rectum advanced to the cecum with the assistance of abdominal wall pressure. Once in the cecum, I did identify normal-appearing cecal pouch with appendiceal orifice and a normal-appearing ileocecal valve. The terminal ileum was cannulated and appeared normal. The scope was withdrawn back in the colon. The entire cecum and ileocecal valve appeared normal. The scope was slowly withdrawn assessing all mucosal surfaces carefully. Preparation was excellent. There was no sign of any colitis nor angiodysplasia. Random biopsies were obtained in the ascending and descending colon. There was a mild amount of sigmoid diverticulosis. In the rectum, there was a 3 or 4 mm polyp, which was biopsied and completely removed with cold biopsy forceps. The scope was retroflexed visualizing internal hemorrhoids, but no other pathology. The rectal mucosa otherwise appeared normal. The scope was straightened and withdrawn from the patient. She tolerated both procedures well and was returned to the recovery area in stable condition. IMPRESSION: 1. Small hiatal hernia. 2. Gastritis. 3. Rule out celiac disease. 4. Rule out microscopic colitis. 5. Rectal polyp. 6. Diverticulosis. 7. Internal and external hemorrhoids. PLAN: The results of the biopsies will be checked. I would recommend repeat colonoscopy in 5 years for further screening. She was advised to continue her current regimen of daily Prilosec for relief of her reflux. She was advised to not use any aspirin and NSAIDs for at least 1 week, but to hopefully try to avoid them prison. She was advised to continue her antispasmodic for the irritable bowel syndrome. If things are stable, she will see me on a p.r.n. basis. MD WARD Chris/NAVDEEP / [phone]
== END 2021-03-14 13:04 | disposition home or self-care (01) ==
PROVIDERS: PCP Internal Medicine; Visit Provider Internal Medicine
PROC: (CPT 45380; principal; 2021-03-14 10:30)
DX: Z12.11 Encounter for screening for malignant neoplasm of colon (principal); Z86.010 Personal history of colon polyps; K63.5 Polyp of colon; K62.1 Rectal polyp; K57.30 Diverticulosis of large intestine without perforation or abscess without bleeding; K64.8 Other hemorrhoids; K64.4 Residual hemorrhoidal skin tags; K58.1 Irritable bowel syndrome with constipation; K21.9 Gastro-esophageal reflux disease without esophagitis; K29.50 Unspecified chronic gastritis without bleeding; K44.9 Diaphragmatic hernia without obstruction or gangrene; J30.2 Other seasonal allergic rhinitis; I10 Essential (primary) hypertension; E11.9 Type 2 diabetes mellitus without complications; Z79.84 Long term (current) use of oral hypoglycemic drugs; Z79.51 Long term (current) use of inhaled steroids; Z79.899 Other long term (current) drug therapy; Z88.2 Allergy status to sulfonamides; Z85.41 Personal history of malignant neoplasm of cervix uteri; Z92.3 Personal history of irradiation; Z90.710 Acquired absence of both cervix and uterus; Z90.49 Acquired absence of other specified parts of digestive tract
CPT/HCPCS: 45380; 43239; 82947; 88305; 88342

== ENCOUNTER 2021-05-09 16:18 | Outpatient (REF) | payer OTHER, SELFPAY ==
--- NOTE | ~2021-05-09 | XR_ITS ---
EXAMINATION: XR CERVICAL SPINE CLINICAL INFORMATION: Assess OA COMPARISON: . TECHNIQUE: 3 views of the cervical spine were obtained. FINDINGS: There is normal cervical lordosis. The vertebral heights, alignment and disc heights are normal. There is bilateral mild narrowing of neural foramina C3-C4, C4-C5 and C5-C6 disc level from mild bilateral facet joint arthropathy. No acute fracture or lytic process seen. No lytic or sclerotic process seen. The prevertebral soft tissues are normal. XR/XR cervical spine 4V IMPRESSION: Bilateral facet joint arthropathy C5-C6, C4-C5 and C3-C4 disc levels. No acute fracture or dislocation seen.
[2021-05-09 16:34] LABS: MANUAL DIFF FLAG NO
[2021-05-09 16:48] LABS: Basophils Percent Auto 0.4 % (0-2); Eosinophils Absolute Auto 0.3 X10*3/uL (0.0-0.4); Eosinophils Percent Auto 4.2 % (0-4); Hematocrit 39.8 % (37.0-47.0); Hemoglobin 13.1 g/dl (12.0-16.0); Imm Gran Abs Auto 0.04 X10*3/uL (0.00-0.03); Imm Gran Pct Auto 0.5 % (0.0-0.4); Lymphocytes Absolute Auto 2.6 X10*3/uL (1.2-4.9); Lymphocytes Percent Auto 34.3 % (20-40); Mean Corpuscular HGB Conc 32.9 g/dl (31.0-35.0); Mean Corpuscular Hemoglobin 29.7 pg (27.0-33.0); Mean Corpuscular Volume 90.2 fL (80.0-98.0); Mean Platelet Volume 10.3 fL (9.4-12.3); Monocytes Absolute Auto 0.5 X10*3/uL (0.1-1.2); Monocytes Percent Auto 6.6 % (2-11); Neutrophils Absolute Auto 4.1 x10*3/uL (2.0-8.3); Platelet Count 196 X10*3/uL (160-400); Red Blood Count 4.41 X10*6/uL (4.20-5.50); Red Cell Distribution Width 12.8 % (11.0-16.0); White Blood Count 7.7 X10*3/uL (4.8-10.8)
[2021-05-09 16:54] LABS: Estimated Average Glucose 137 mg/dL; Hemoglobin A1c % 6.4 %
[2021-05-09 17:05] LABS: Alanine Aminotransferase 38 U/L (0-31); Albumin Level 4.3 g/dL (3.5-5.0); Alkaline Phosphatase 77 U/L (39-117); Anion Gap 11 (12-20); Aspartate Amino Transferase 42 U/L (5-31); Bilirubin Total 0.4 mg/dL (0.0-1.0); Blood Urea Nitrogen 17 mg/dL (9-16); C Reactive Protein 0.24 mg/dL (< or = 0.50); Calcium 10.2 mg/dL (8.4-10.2); Carbon Dioxide 29 mmol/L (22-29); Chloride 107 mmol/L (96-108); Estimated Glomerular Filt Rate > 60; Glucose Random 109 mg/dL (60-115); Potassium 3.9 mmol/L (3.3-5.1); Sodium 143 mmol/L (135-145); Total Protein 6.7 g/dL (6.5-8.0)
[2021-05-09 17:26] LABS: Vitamin D 25-OH Total 23.4 ng/mL (>30)
== END 2021-05-09 16:19 | disposition home or self-care (01) ==
LOC: HO.LAB 16:18
PROVIDERS: PCP Internal Medicine; Visit Provider Internal Medicine
DX: M54.2 Cervicalgia (principal); E11.9 Type 2 diabetes mellitus without complications; I10 Essential (primary) hypertension; K58.9 Irritable bowel syndrome, unspecified; R63.4 Abnormal weight loss; E55.9 Vitamin D deficiency, unspecified
CPT/HCPCS: 36415; 72050; 80053; 82306; 83036; 85025; 86140

== ENCOUNTER 2021-05-25 13:19 | Outpatient (REF) | payer OTHER, SELFPAY ==
--- NOTE | ~2021-05-25 | MM_ITS ---
EXAMINATION: MM DIAGNOSTIC DIGITAL BREAST TOMOSYNTHESIS, RIGHT CLINICAL INFORMATION: Short interval six-month follow-up probable benign focal asymmetric density posterior 3:00 right breast. The lifetime risk of breast cancer based on the Tyrer-Cuzick Model is 8%. COMPARISON: Mammography: 11/24/2020, 11/06/2020 (BI-RADS 0), 08/21/2018; ultrasound right breast 11/30/2020. TECHNIQUE: Digital breast tomosynthesis is performed in both the craniocaudal and mediolateral oblique views along with computer-aided detection (CAD). Synthesized 2D images are generated from the tomosynthesis. FINDINGS: There are scattered areas of fibroglandular density (ACR BI-RADS breast composition Category b). The finding posterior medial right breast is nearly completely resolved, only a tiny oval density noted in this area on CC tomography. No MLO correlate. There is no architectural abnormality. Remainder right breast unremarkable. Management plan is for diagnostic mammography at time of annual mammography, due in 6 months to confirm stability or further decrease. Results are provided to the patient at time of visit by the technologist. MM/MM tomosynthesis diagnostic RT IMPRESSION: Finding posterior medial right breast is nearly completely resolved, only small oval density noted on CC tomography in this area. Will reassess at annual mammography to conclude surveillance. ASSESSMENT: BI-RADS 3: Probably Benign RECOMMENDATION: Diagnostic mammography at time of annual bilateral mammography, due in 6 months. This patient's information was entered into a reminder system with a target due date for their next mammogram.
== END 2021-05-25 13:20 | disposition home or self-care (01) ==
LOC: HO.MAMMO 13:19
PROVIDERS: Visit Provider Internal Medicine
DX: R92.2 Inconclusive mammogram (principal)
CPT/HCPCS: 77061; 77065

== ENCOUNTER 2021-10-27 06:13 | Outpatient (REF) | payer OTHER, SELFPAY ==
[2021-10-27 06:30] LABS: MANUAL DIFF FLAG NO
[2021-10-27 07:23] LABS: Basophils Absolute Auto 0.1 X10*3/uL (0.0-0.2); Basophils Percent Auto 0.8 % (0-2); Eosinophils Absolute Auto 0.2 X10*3/uL (0.0-0.4); Eosinophils Percent Auto 2.5 % (0-4); Hematocrit 42.2 % (37.0-47.0); Hemoglobin 14.2 g/dl (12.0-16.0); Imm Gran Abs Auto 0.03 X10*3/uL (0.00-0.03); Imm Gran Pct Auto 0.4 % (0.0-0.4); Lymphocytes Absolute Auto 2.3 X10*3/uL (1.2-4.9); Lymphocytes Percent Auto 29.5 % (20-40); Mean Corpuscular HGB Conc 33.6 g/dl (31.0-35.0); Mean Corpuscular Hemoglobin 29.8 pg (27.0-33.0); Mean Corpuscular Volume 88.7 fL (80.0-98.0); Mean Platelet Volume 10.9 fL (9.4-12.3); Monocytes Absolute Auto 0.7 X10*3/uL (0.1-1.2); Monocytes Percent Auto 8.5 % (2-11); Neutrophils Absolute Auto 4.6 x10*3/uL (2.0-8.3); Neutrophils Percent Auto 58.3 % (45-73); Platelet Count 180 X10*3/uL (160-400); Red Blood Count 4.76 X10*6/uL (4.20-5.50); Red Cell Distribution Width 13.2 % (11.0-16.0); White Blood Count 7.9 X10*3/uL (4.8-10.8)
[2021-10-27 07:31] LABS: Estimated Average Glucose 146 mg/dL; Hemoglobin A1c % 6.7 %
[2021-10-27 07:55] LABS: Creatinine Urine 177.47 mg/dL; Microalbum/Creatinine Ratio Ur 22.5 ug/mg cr
[2021-10-27 07:57] LABS: Alanine Aminotransferase 36 U/L (0-31); Albumin Level 4.1 g/dL (3.5-5.0); Alkaline Phosphatase 83 U/L (39-117); Anion Gap 15 (12-20); Aspartate Amino Transferase 32 U/L (5-31); Bilirubin Total 0.7 mg/dL (0.0-1.0); Blood Urea Nitrogen 19 mg/dL (9-16); Calcium 9.8 mg/dL (8.4-10.2); Carbon Dioxide 25 mmol/L (22-29); Chloride 108 mmol/L (96-108); Cholesterol 210 mg/dL; Estimated Glomerular Filt Rate > 60; Glucose Fasting 143 mg/dL (60-99); HDL Cholesterol 55 mg/dL; LDL Cholesterol Calculated 129 mg/dl; Potassium 4.2 mmol/L (3.3-5.1); Sodium 144 mmol/L (135-145); Total Protein 6.5 g/dL (6.5-8.0); Triglycerides 131 mg/dL
[2021-10-27 08:04] LABS: Vitamin D 25-OH Total 36.6 ng/mL (>30)
== END 2021-10-27 06:14 | disposition home or self-care (01) ==
LOC: HO.LAB 06:13
PROVIDERS: PCP Internal Medicine; Visit Provider Internal Medicine
DX: I10 Essential (primary) hypertension (principal); E11.9 Type 2 diabetes mellitus without complications; E55.9 Vitamin D deficiency, unspecified; R79.89 Other specified abnormal findings of blood chemistry; K58.9 Irritable bowel syndrome, unspecified
CPT/HCPCS: 36415; 80053; 80061; 82043; 82306; 83036; 85025

== ENCOUNTER 2021-12-01 13:10 | Outpatient (REF) | payer OTHER, SELFPAY ==
--- NOTE | ~2021-12-01 | MM_ITS ---
EXAMINATION: MM DIAGNOSTIC DIGITAL BREAST TOMOSYNTHESIS, BILATERAL CLINICAL INFORMATION: Six-month follow-up right breast mammogram and screening left breast study. The lifetime risk of breast cancer based on the Tyrer-Cuzick Model is 6.5%. COMPARISON: Mammography: May 25, 2021 and studies dating back to February 14, 2014 TECHNIQUE: Digital breast tomosynthesis is performed in both the craniocaudal and mediolateral oblique views along with computer-aided detection (CAD). Synthesized 2D images are generated from the tomosynthesis. FINDINGS: There are scattered areas of fibroglandular density (ACR BI-RADS breast composition Category b). The previously noted right breast density about the medial aspect is not identified on today's study. There are again noted to be bilateral circumscribed densities. No new suspicious dominant mass or grouping of microcalcifications identified. Results are provided to the patient at time of visit by the technologist. MM/MM tomosynthesis diagnostic BI IMPRESSION: No mammographic evidence to suggest malignancy. ASSESSMENT: BI-RADS 2: Benign RECOMMENDATION: Routine annual mammography screening due in 12 months. This patient's information was entered into a reminder system with a target due date for their next mammogram.
== END 2021-12-01 13:11 | disposition home or self-care (01) ==
LOC: HO.MAMMO 13:10
PROVIDERS: PCP Internal Medicine; Visit Provider Internal Medicine
DX: R92.2 Inconclusive mammogram (principal)
CPT/HCPCS: 77062; 77066

== ENCOUNTER 2022-02-27 10:39 | Outpatient (REF) | payer OTHER, SELFPAY ==
[2022-02-27 11:08] LABS: Estimated Average Glucose 154 mg/dL
[2022-02-27 11:45] LABS: Alanine Aminotransferase 43 U/L (0-31); Albumin Level 4.2 g/dL (3.5-5.0); Alkaline Phosphatase 87 U/L (39-117); Anion Gap 11 (12-20); Aspartate Amino Transferase 37 U/L (5-31); Bilirubin Total 0.6 mg/dL (0.0-1.0); Blood Urea Nitrogen 21 mg/dL (9-16); Calcium 9.8 mg/dL (8.4-10.2); Carbon Dioxide 25 mmol/L (22-29); Chloride 109 mmol/L (96-108); Estimated Glomerular Filt Rate 53; Glucose Random 154 mg/dL (60-115); Potassium 3.9 mmol/L (3.3-5.1); Sodium 141 mmol/L (135-145); Total Protein 6.4 g/dL (6.5-8.0)
[2022-02-27 12:52] LABS: Creatinine Urine 577.46 mg/dL; Microalbum/Creatinine Ratio Ur 22.3 ug/mg cr
== END 2022-02-27 10:40 | disposition home or self-care (01) ==
LOC: HO.LAB 10:39
PROVIDERS: PCP Internal Medicine; Visit Provider Internal Medicine
DX: E11.9 Type 2 diabetes mellitus without complications (principal); I10 Essential (primary) hypertension; K58.9 Irritable bowel syndrome, unspecified
CPT/HCPCS: 36415; 80053; 82043; 83036

== ENCOUNTER 2022-07-31 10:46 | Outpatient (REF) | payer OTHER, SELFPAY ==
[2022-07-31 11:39] LABS: Estimated Average Glucose 143 mg/dL; Hemoglobin A1c % 6.6 %
[2022-07-31 12:01] LABS: Alanine Aminotransferase 33 U/L (0-31); Albumin Level 3.9 g/dL (3.5-5.0); Alkaline Phosphatase 98 U/L (39-117); Anion Gap 13 (12-20); Aspartate Amino Transferase 34 U/L (5-31); Bilirubin Total 0.5 mg/dL (0.0-1.0); Blood Urea Nitrogen 25 mg/dL (9-16); Calcium 9.9 mg/dL (8.4-10.2); Carbon Dioxide 24 mmol/L (22-29); Chloride 106 mmol/L (96-108); Estimated Glomerular Filt Rate 53; Glucose Random 166 mg/dL (60-115); Potassium 4.5 mmol/L (3.3-5.1); Sodium 138 mmol/L (135-145); Total Protein 6.7 g/dL (6.5-8.0)
[2022-07-31 12:43] LABS: Creatinine Urine 405.48 mg/dL; Microalbum/Creatinine Ratio Ur 6.9 ug/mg cr
== END 2022-07-31 10:47 | disposition home or self-care (01) ==
LOC: HO.LAB 10:46
PROVIDERS: PCP Internal Medicine; Visit Provider Internal Medicine
DX: I12.9 Hypertensive chronic kidney disease with stage 1 through stage 4 chronic kidney disease, or unspecified chronic kidney disease (principal); E11.22 Type 2 diabetes mellitus with diabetic chronic kidney disease; N18.9 Chronic kidney disease, unspecified; K58.1 Irritable bowel syndrome with constipation; M19.90 Unspecified osteoarthritis, unspecified site
CPT/HCPCS: 36415; 80053; 82043; 83036

== ENCOUNTER 2022-12-05 13:37 | Outpatient (REF) | payer OTHER, SELFPAY ==
--- NOTE | ~2022-12-05 | MM_ITS ---
EXAMINATION: BONE DENSITOMETRY CLINICAL INDICATION: Screening. COMPARISON: This is the patient's baseline examination. TECHNIQUE: Using a [employer] DXA System (software version: 13.1) manufactured by [employer], dual-energy x-ray absorptiometry was performed of the lumbar spine and left hip. The images are of good technical quality. Summary results are attached. FINDINGS: LEFT FEMUR, NECK: BMD 1.115 g/cm2, Z-score 1.9, T-score 0.6, normal. LEFT FEMUR, TOTAL: BMD 1.223 g/cm2, Z-score 2.8, T-score 1.7, normal. AP SPINE L1-L4: BMD 1.379 g/cm2, Z-score 2.9, T-score 1.7, normal. IDENTIFIED RISK FACTORS: Menopause, hysterectomy, bilateral oophorectomy. HISTORY OF FRACTURE: None listed. MEDICATIONS: None listed. MM/XR DEXA axial skeleton IMPRESSION: 1. DIAGNOSIS: Normal bone density based on the lowest T-score value of 0.6 in the femoral neck applying World Health Organization criteria. 2. 10-YEAR FRACTURE RISK PREDICTION, FRAX: According to the guidelines, FRAX calculation should only be performed on patients in the osteopenia bone density category. Therefore, FRAX was not performed on this patient. 3. Treatment Recommendations: NOF guidelines recommend consideration for treatment in postmenopausal women and men age 50 and older presenting with the following: -A hip or vertebral (clinical or morphometric) fracture. -T-score less than or equal to -2.5 at the femoral neck or spine after appropriate evaluation to exclude secondary causes. -Low bone mass at the hip or spine and a 10-year fracture probability by FRAX of greater than or equal to 3% for hip fracture or greater than or equal to 20% for major osteoporotic fracture based on the [place] adapted WHO algorithm. 4. Other Recommendations: All treatment decisions require clinical judgment and consideration of individual patient factors, including patient preferences, comorbidities, previous drug use, risk factors not captured in the FRAX model (e.g. frailty, falls, vitamin D deficiency, increased bone turnover, interval significant decline in bone density) and possible under or overestimation of fracture risk by FRAX. FUTURE SCAN RECOMMENDATION: People with diagnosed cases of osteoporosis or at high risk for fracture should have regular bone mineral density tests. For patients eligible for Medicare, routine testing is allowed once every 2 years. The testing frequency can be increased to one year for patients who have rapidly progressing disease, those who are receiving or discontinuing medical therapy to restore bone mass, or have additional risk factors.
== END 2022-12-05 13:38 | disposition home or self-care (01) ==
LOC: HO.MAMMO 13:37
PROVIDERS: PCP Internal Medicine; Visit Provider Internal Medicine
DX: Z12.31 Encounter for screening mammogram for malignant neoplasm of breast (principal); Z13.820 Encounter for screening for osteoporosis; Z78.0 Asymptomatic menopausal state
CPT/HCPCS: 77063; 77067; 77080

== ENCOUNTER → 2022-12-05 14:30 | Outpatient (BNV) | payer OTHER, SELFPAY | PROVIDERS: PCP Internal Medicine; Visit Provider Radiology Diagnostic Radiology | DX: Z12.31 Encounter for screening mammogram for malignant neoplasm of breast (principal) | CPT/HCPCS: 77063; 77067 ==

== ENCOUNTER 2023-02-22 06:47 | Outpatient (REF) | payer OTHER, SELFPAY ==
[2023-02-22 06:52] LABS: MANUAL DIFF FLAG NO
[2023-02-22 07:34] LABS: Basophils Absolute Auto 0.1 X10*3/uL (0.0-0.2); Basophils Percent Auto 0.7 % (0-2); Eosinophils Absolute Auto 0.2 X10*3/uL (0.0-0.4); Eosinophils Percent Auto 2.5 % (0-4); Hematocrit 41.7 % (37.0-47.0); Hemoglobin 14.1 g/dl (12.0-16.0); Imm Gran Abs Auto 0.01 X10*3/uL (0.00-0.03); Imm Gran Pct Auto 0.1 % (0.0-0.4); Lymphocytes Absolute Auto 2.3 X10*3/uL (1.2-4.9); Lymphocytes Percent Auto 34.5 % (20-40); Mean Corpuscular HGB Conc 33.8 g/dl (31.0-35.0); Mean Corpuscular Hemoglobin 29.8 pg (27.0-33.0); Mean Corpuscular Volume 88.2 fL (80.0-98.0); Mean Platelet Volume 9.8 fL (9.4-12.3); Monocytes Absolute Auto 0.5 X10*3/uL (0.1-1.2); Monocytes Percent Auto 8.1 % (2-11); Neutrophils Absolute Auto 3.6 x10*3/uL (2.0-8.3); Neutrophils Percent Auto 54.1 % (45-73); Platelet Count 158 X10*3/uL (160-400); Red Blood Count 4.73 X10*6/uL (4.20-5.50); Red Cell Distribution Width 13.4 % (11.0-16.0); White Blood Count 6.7 X10*3/uL (4.8-10.8)
[2023-02-22 07:46] LABS: Estimated Average Glucose 171 mg/dL; Hemoglobin A1c % 7.6 % (<6.0)
[2023-02-22 07:57] LABS: Creatinine Urine 334.66 mg/dL; Microalbum/Creatinine Ratio Ur 10.7 ug/mg cr (<30)
[2023-02-22 07:59] LABS: Alanine Aminotransferase 50 U/L (0-31); Albumin Level 4.1 g/dL (3.5-5.0); Alkaline Phosphatase 90 U/L (39-117); Anion Gap 12 (12-20); Aspartate Amino Transferase 36 U/L (5-31); Bilirubin Total 0.4 mg/dL (0.0-1.0); Blood Urea Nitrogen 19 mg/dL (9-16); Calcium 9.7 mg/dL (8.4-10.2); Carbon Dioxide 25 mmol/L (22-29); Chloride 110 mmol/L (96-108); Cholesterol 194 mg/dL (<200); Estimated Glomerular Filt Rate > 60; Glucose Random 138 mg/dL (60-115); HDL Cholesterol 62 mg/dL (>40); LDL Cholesterol Calculated 112 mg/dL (<100); Sodium 143 mmol/L (135-145); Total Protein 6.7 g/dL (6.5-8.0); Triglycerides 100 mg/dL (<150)
== END 2023-02-22 06:48 | disposition home or self-care (01) ==
LOC: HO.LAB 06:47
PROVIDERS: PCP Internal Medicine; Visit Provider Internal Medicine
DX: I10 Essential (primary) hypertension (principal); E11.9 Type 2 diabetes mellitus without complications; R79.89 Other specified abnormal findings of blood chemistry
CPT/HCPCS: 36415; 80053; 80061; 82043; 82570; 83036; 85025

== ENCOUNTER 2023-11-14 07:38 | Outpatient (REF) | payer OTHER, SELFPAY ==
[2023-11-14 09:31] LABS: Estimated Average Glucose 189 mg/dL; Hemoglobin A1C 214.6934 umol/L; Hemoglobin A1c % 8.2 % (<6.0); Total Hemoglobin (HGBA1C) 3244.2722 umol/L
[2023-11-14 09:32] LABS: Alanine Aminotransferase 73 U/L (0-31); Albumin Level 3.9 g/dL (3.5-5.0); Alkaline Phosphatase 88 U/L (39-117); Anion Gap 15 (12-20); Aspartate Amino Transferase 48 U/L (5-31); Bilirubin Total 0.5 mg/dL (0.0-1.0); Blood Urea Nitrogen 21 mg/dL (9-16); Carbon Dioxide 21 mmol/L (22-29); Chloride 107 mmol/L (96-108); Estimated Glomerular Filt Rate 51; Glucose Random 344 mg/dL (60-115); Potassium 3.9 mmol/L (3.3-5.1); Sodium 139 mmol/L (135-145); Total Protein 6.4 g/dL (6.5-8.0)
[2023-11-14 09:49] LABS: Vitamin D 25-OH Total 39.9 ng/mL (>30)
== END 2023-11-14 07:39 | disposition home or self-care (01) ==
LOC: HO.LAB 07:38
PROVIDERS: PCP Internal Medicine; Visit Provider Internal Medicine
DX: E11.9 Type 2 diabetes mellitus without complications (principal); R79.89 Other specified abnormal findings of blood chemistry; I10 Essential (primary) hypertension; M19.90 Unspecified osteoarthritis, unspecified site
CPT/HCPCS: 36415; 80053; 82306; 83036

== ENCOUNTER 2023-12-15 08:36 | Outpatient (REF) | payer OTHER, SELFPAY ==
--- NOTE | ~2023-12-15 | MM_ITS ---
EXAMINATION: MM SCREENING DIGITAL BREAST TOMOSYNTHESIS, BILATERAL CLINICAL INFORMATION: Screening. Asymptomatic. COMPARISON: Mammography: Comparison is made with available priors TECHNIQUE: Digital breast mammography with tomosynthesis is performed in both the craniocaudal and mediolateral oblique views along with computer-aided detection (CAD). FINDINGS: There are scattered areas of fibroglandular density (ACR BI-RADS breast composition Category b). There are no significant masses, abnormal calcifications, or other abnormalities. MM/MM tomosynthesis screening BI IMPRESSION: No mammographic evidence of malignancy. ASSESSMENT: BI-RADS BI-RADS 1 - Negative RECOMMENDATION: Routine annual mammography screening. 1 year F/U This examination should not preclude the clinical evaluation of a suspicious palpable abnormality. This patient's information was entered into a reminder system with a target due date for their next mammogram. Electronically signed by: Sylvia Chester DO 12/25/2023 09:23 AM KATHLEEN
== END 2023-12-15 08:37 | disposition home or self-care (01) ==
LOC: HO.MAMMO 08:36
PROVIDERS: PCP Internal Medicine; Visit Provider Internal Medicine
DX: Z12.31 Encounter for screening mammogram for malignant neoplasm of breast (principal)
CPT/HCPCS: 77063; 77067

== ENCOUNTER → 2023-12-15 09:00 | Outpatient (BNV) | payer OTHER, SELFPAY | PROVIDERS: PCP Internal Medicine; Visit Provider Internal Medicine | DX: Z12.31 Encounter for screening mammogram for malignant neoplasm of breast (principal) | CPT/HCPCS: 77063; 77067 ==

== ENCOUNTER 2024-04-07 16:59 | Outpatient (REF) | payer OTHER, SELFPAY ==
[2024-04-07 17:57] LABS: Anion Gap 13 (12-20); Blood Urea Nitrogen 25 mg/dL (9-16); Calcium 9.9 mg/dL (8.4-10.2); Carbon Dioxide 26 mmol/L (22-29); Chloride 109 mmol/L (96-108); Estimated Glomerular Filt Rate 58; Glucose Random 106 mg/dL (60-115); Potassium 3.9 mmol/L (3.3-5.1); Sodium 144 mmol/L (135-145)
[2024-04-07 18:22] LABS: Estimated Average Glucose 206 mg/dL; Hemoglobin A1C 251.6836 umol/L; Hemoglobin A1c % 8.8 % (<6.0); Total Hemoglobin (HGBA1C) 3454.8435 umol/L
== END 2024-04-07 17:00 | disposition home or self-care (01) ==
LOC: HO.LAB 16:59
PROVIDERS: PCP Internal Medicine; Visit Provider Internal Medicine
DX: E11.9 Type 2 diabetes mellitus without complications (principal); I10 Essential (primary) hypertension
CPT/HCPCS: 36415; 80048; 83036

== ENCOUNTER 2024-04-10 08:52 | Outpatient (AMB) | payer OTHER, SELFPAY ==
--- NOTE | 2024-04-10 09:36 | MHC.OFFWIV ---
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 Patient Tobacco Use Status: Never used Tobacco Allergies sulfamethoxazole [From BACTRIM] Allergy (Intermediate, Verified 04/10/24 09:38) HIVES trimethoprim [From BACTRIM] Allergy (Intermediate, Verified 04/10/24 09:38) HIVES Sulfa (Sulfonamide Antibiotics) Allergy (Unknown, Verified 04/10/24 09:38) Hives Do you need a note to return to daycare/school/sports/work: No HPI HPI Comments History of Present Illness Details History of Present Illness - The patient is a 69-year-old female presenting with a persistent leg infection following a fall. - The injury was sustained two months ago when the patient fell on the pavement scraping both knees. - The existing leg infection on the left pryor showed initial improvement but is now stagnant without healing. - The patient has been using Silver sulfadiazine cream twice daily and was on doxycycline, which was prescribed initially and refilled due to ongoing infection concerns. - The patient self-administered amoxicillin from leftover dental medication. - The patient's diabetes is controlled, suggesting it may not be significantly affecting healing, though it is a contributing factor. Physical Exam General: Cooperative, healthy appearing, comfortable, no acute distress and well developed Orientation: Patient oriented x3 Limitations: No limitations Head: Normal to inspection Ears: Hearing grossly normal bilaterally Nose: Normal external nose present Face and sinus: normal facial exam Eyes: Appearance normal, both eyes and all related structures Neck: Normal visual inspection and Yes full ROM Respiratory: Normal respiratory effort and able to speak in complete sentences. Skin: see below Neuro: Patient oriented x3 Extremities: left anterior pryor grade 2 to 3 ulcer 1.5cm round with surrounding erythema, no drainage, no warmth. has silver sulfadiazine slathered on it. [facility] Medical History (Updated 04/10/24 @ 09:56 by Emma Jerome PA-C) Environmental allergies Murmur, cardiac Seasonal allergies Arthritis Hx of cervical cancer IBS (irritable bowel syndrome) Diabetes Hypertension Surgical History (Updated 03/08/21 @ 14:42 by Elza Palacio, RN) Hx of colonoscopy Hx of cholecystectomy History of total abdominal hysterectomy Social History (Updated 03/09/21 @ 10:20 by Elza Palacio, RN) Are you a primary sub acute care nurse to a significant other at home: No Do you presently have visiting nurse or other home services: No Patient Tobacco Use Status: Never used Tobacco Review of Systems Const All systems reviewed & are unremarkable except as noted in HPI and below Physical Exam Vital Signs: Last Vital Signs Temp 98 F 04/10/24 09:40 Pulse 70 04/10/24 09:40 BP 120/80 04/10/24 09:40 Pulse Ox 97 04/10/24 09:40 Oxygen Delivery Method Room Air 04/10/24 09:40 Assessment & Plan Assessment & Plan (1) Leg wound, left: Code(s): S81.802A - Unspecified open wound, left lower leg, initial encounter Qualifiers: Encounter type: initial encounter Qualified Code(s): S81.802A - Unspecified open wound, left lower leg, initial encounter Plan: The management plan involves arranging with Dr Ayala's office for specialized wound care treatment to address the non-healing wound on the patient's left knee. The use of Silver sulfadiazine cream will continue to prevent further infection as interim wound management. The prompt coordination of care with a student finance specialist will be undertaken. Attention to diabetes control will continue as part of the ongoing management of the patient's overall health, ensuring it does not impede the healing process. Communication with Dr. Ayala to expedite wound care consultation will be initiated. Patient was informed and verbally consented to the use of an ambient scribe for clinic note documentation during this visit. Coding Level of Care Code New Pt Level 3 (28161) Diagnoses Wound of left lower extremity, initial encounter S81.802A Encounter type: initial encounter
[2024-04-10 09:40] VITALS: BP 120/80; PULSE 70; TEMP 36.6; O2SAT 97
== END 2024-04-10 10:10 | disposition home or self-care (01) ==
PROVIDERS: PCP Internal Medicine; Visit Provider Physician Assistant
DX: S81.802A Unspecified open wound, left lower leg, initial encounter (principal)

== ENCOUNTER → 2024-04-10 08:52 | Outpatient (BNVA) | payer OTHER, SELFPAY | PROVIDERS: PCP Internal Medicine ==

== ENCOUNTER 2024-06-24 15:46 | Outpatient (AMB) | payer OTHER, SELFPAY ==
--- NOTE | 2024-06-24 15:39 | A.OFFPC_ITS ---
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 Her last hemoglobin A1c was 8.8%. She reports her fasting glucose levels have been between 170 and 240. She is not always compliant with diabetic diet. She is taking metformin but does not feel this is working. She has been [facility] for management of the left lower extremity venous leg ulcer s/p debridement and is being considered for a wound VAC. She is waiting on approval for VNA services. She is following with Dr. Stallworth at the [facility] for management of the arthritis in her left knee. She is being considered for cortisone versus gel injection but she is home events about having this completed. She is also in need of a knee replacement but has concerns about this. She reports compliance with all of her medications. Initial blood pressure uncontrolled but on recheck 138/88. She otherwise has no complaints. ON LICENSE OF [facility] Medical History (Updated 06/27/24 @ 09:35 by KRIS Maya) Osteoarthritis of right knee Venous ulcer of left leg Elevated liver enzymes GERD (gastroesophageal reflux disease) Type 2 diabetes mellitus Environmental allergies Murmur, cardiac Seasonal allergies Arthritis Hx of cervical cancer IBS (irritable bowel syndrome) Diabetes Hypertension Surgical History (Updated 06/19/24 @ 18:19 by Manda Lee) Hx of colonoscopy (~03/14/21) Hx of cholecystectomy History of total abdominal hysterectomy Social History (Updated 03/09/21 @ 10:20 by Elza Palacio RN) Are you a primary career based intervention coordinator to a significant other at home: No Do you presently have visiting nurse or other home services: No Patient Tobacco Use Status: Never used Tobacco Review of Systems Const All systems reviewed & are unremarkable except as noted in HPI and below Physical exam (Primary Care) Vital Signs: Last Vital Signs Temp 97.6 F 06/24/24 15:53 Pulse 67 06/24/24 15:53 BP 170/84 H 06/24/24 15:53 Pulse Ox 98 06/24/24 15:53 Oxygen Delivery Method Room Air 06/24/24 15:53 BMI result Body Mass Index 29.3 Tobacco/Smoking Status: Tobacco use Status Patient Tobacco Use Status Never used Tobacco 06/24/24 15:39 Const Other: Constitutional - Awake and Alert, No apparent distress Eyes - PERRLA, EOMI Cardiovascular - S1S2, RRR, No edema . Systolic murmur noted Respiratory - Normal lung expansion, Normal respiratory effort, No respiratory distress, CTA bilaterally Extremities - no calf tenderness bilaterally, no swelling Skin - Warm/Dry. LLE with venous ulcer currently dressed and covered with compression stocking. No obvious drainage. Pt requests dressing not be removed. Reviewed wound care note for evaluation Neurological - Alert & oriented x3 Psychological - Appropriate affect Coding Level of Care Code Est Pt Level 4 (46230) Complex EM visit Add On G2211 Diagnoses Type 2 diabetes mellitus E11.9 Hypertension I10 Screening cholesterol level Z13.220 Venous ulcer of left leg I83.029; L97.929 Osteoarthritis of right knee M17.11 Murmur, cardiac R01.1 Assessment & Plan Assessment & Plan (1) Type 2 diabetes mellitus: Code(s): E11.9 - Type 2 diabetes mellitus without complications Category: Medical Plan: Uncontrolled with last hemoglobin A1c of 8.8%. Will update hemoglobin A1c today. Continue glipizide 5 mg ER. She does not feel metformin is working so she discontinued this, discussed that this was unlikely. Counseled on diabetic diet and fasting glucose recommendations being less than 130. Will adjust medications as indicated by A1c result. Continue with yearly eye exams. (2) Hypertension: Code(s): I10 - Essential (primary) hypertension Category: Medical Plan: Blood pressure controlled on recheck. Continue atenolol. Low-sodium diet. (3) Screening cholesterol level: Code(s): Z13.220 - Encounter for screening for lipoid disorders Plan: Lipid panel ordered. (4) Venous ulcer of left leg: Code(s): I83.029 - Varicose veins of left lower extremity with ulcer of unspecified site; L97.929 - Non-pressure chronic ulcer of unspecified part of left lower leg with unspecified severity Category: Medical Plan: Wound care note reviewed. Follow-up for wound VAC. Awaiting VNA for ongoing wound management. Keep wound clean and dressed as advised by wound care clinic. Discussed the importance of glucose management in regarding wound healing. (5) Osteoarthritis of right knee: Code(s): M17.11 - Unilateral primary osteoarthritis, right knee Category: Medical Plan: Continue following with urethritis treatment center. Discussed that cortisone injections will elevate her blood glucose level. Advised to call the office should she decide to proceed with the injection so that appropriate modifications to medications can be made. (6) Murmur, cardiac: Code(s): R01.1 - Cardiac murmur, unspecified Category: Medical Plan: Echocardiogram ordered Plan Follow-up in 3 months. Labs to be completed prior to visit as well as prior to next visit. Cardiac murmur noted on exam. Echocardiogram ordered Orders: Orders Complete Blood Count Auto Diff 06/24/24 E11.9 - Type 2 diabetes mellitus without complications, I10 - Essential (primary) hypertension, R74.8 - Abnormal levels of other serum enzymes, Z13.220 - Encounter for screening for lipoid disorders Basic Metabolic Panel 06/24/24 E11.9 - Type 2 diabetes mellitus without complications, I10 - Essential (primary) hypertension, R74.8 - Abnormal levels of other serum enzymes, Z13.220 - Encounter for screening for lipoid disorders Hemoglobin A1c 06/24/24 E11.9 - Type 2 diabetes mellitus without complications, I10 - Essential (primary) hypertension, R74.8 - Abnormal levels of other serum enzymes, Z13.220 - Encounter for screening for lipoid disorders Lipid Panel 06/24/24 E11.9 - Type 2 diabetes mellitus without complications, I10 - Essential (primary) hypertension, R74.8 - Abnormal levels of other serum enzymes, Z13.220 - Encounter for screening for lipoid disorders Liver Panel 06/24/24 E11.9 - Type 2 diabetes mellitus without complications, I10 - Essential (primary) hypertension, R74.8 - Abnormal levels of other serum enzymes, Z13.220 - Encounter for screening for lipoid disorders TSH reflex Free T4 06/24/24 E11.9 - Type 2 diabetes mellitus without c omplications, I10 - Essential (primary) hypertension, R74.8 - Abnormal levels of other serum enzymes, Z13.220 - Encounter for screening for lipoid disorders Microalbumin, Random (w Creat) 06/24/24 E11.9 - Type 2 diabetes mellitus without complications, I10 - Essential (primary) hypertension, R74.8 - Abnormal levels of other serum enzymes, Z13.220 - Encounter for screening for lipoid disorders CA echo transthoracic complete 06/24/24 R01.1 - Cardiac murmur, unspecified Medications: Changed From trazodone PO BEDTIME To trazodone 50 mg PO BEDTIME 90 tabs 1RF Refilled hyoscyamine sulfate 0.125 mg PO BID 180 tabs 1RF
[2024-06-24 15:53] VITALS: BP 170/84; PULSE 67; TEMP 36.4; O2SAT 98; BMI 29.3
== END 2024-06-24 16:32 | disposition home or self-care (01) ==
LOC: HO.HMCHD 15:46
PROVIDERS: PCP Physician Assistant; Visit Provider Physician Assistant
DX: E11.9 Type 2 diabetes mellitus without complications (principal); I10 Essential (primary) hypertension; Z13.220 Encounter for screening for lipoid disorders; I83.029 Varicose veins of left lower extremity with ulcer of unspecified site; L97.929 Non-pressure chronic ulcer of unspecified part of left lower leg with unspecified severity; M17.11 Unilateral primary osteoarthritis, right knee; R01.1 Cardiac murmur, unspecified

== ENCOUNTER → 2024-06-24 15:46 | Outpatient (BNVA) | payer OTHER, SELFPAY | PROVIDERS: PCP Physician Assistant; Visit Provider Physician Assistant ==

== ENCOUNTER 2024-06-28 08:18 | Outpatient (REF) | payer OTHER, SELFPAY ==
[2024-06-28 08:33] LABS: MANUAL DIFF FLAG NO
[2024-06-28 08:38] LABS: Basophils Absolute Auto 0.1 X10*3/uL (0.0-0.2); Basophils Percent Auto 0.8 % (0-2); Eosinophils Absolute Auto 0.3 X10*3/uL (0.0-0.4); Eosinophils Percent Auto 3.4 % (0-4); Hematocrit 37.4 % (37.0-47.0); Imm Gran Abs Auto 0.02 X10*3/uL (0.00-0.03); Imm Gran Pct Auto 0.3 % (0.0-0.4); Lymphocytes Absolute Auto 2.1 X10*3/uL (1.2-4.9); Lymphocytes Percent Auto 27.2 % (20-40); Mean Corpuscular HGB Conc 34.8 g/dl (31.0-35.0); Mean Corpuscular Hemoglobin 30.5 pg (27.0-33.0); Mean Corpuscular Volume 87.8 fL (80.0-98.0); Mean Platelet Volume 10.1 fL (9.4-12.3); Monocytes Absolute Auto 0.5 X10*3/uL (0.1-1.2); Neutrophils Absolute Auto 4.6 x10*3/uL (2.0-8.3); Neutrophils Percent Auto 61.3 % (45-73); Platelet Count 207 X10*3/uL (160-400); Red Blood Count 4.26 X10*6/uL (4.20-5.50); Red Cell Distribution Width 13.4 % (11.0-16.0); White Blood Count 7.6 X10*3/uL (4.8-10.8)
[2024-06-28 08:45] LABS: Estimated Average Glucose 226 mg/dL; Hemoglobin A1C 280.5196 umol/L; Hemoglobin A1c % 9.5 % (<6.0); Total Hemoglobin (HGBA1C) 3481.9994 umol/L
[2024-06-28 09:18] LABS: Alanine Aminotransferase 52 U/L (0-31); Alkaline Phosphatase 86 U/L (39-117); Anion Gap 14 (12-20); Aspartate Amino Transferase 66 U/L (5-31); Bilirubin Direct 0.3 mg/dL (0.0-0.5); Bilirubin Total 0.8 mg/dL (0.0-1.0); Blood Urea Nitrogen 19 mg/dL (9-16); Calcium 9.9 mg/dL (8.4-10.2); Carbon Dioxide 24 mmol/L (22-29); Chloride 108 mmol/L (96-108); Cholesterol 160 mg/dL (<200); Estimated Glomerular Filt Rate > 60; Glucose Random 216 mg/dL (60-115); HDL Cholesterol 48 mg/dL (>40); LDL Cholesterol Calculated 90 mg/dL (<100); Potassium 3.7 mmol/L (3.3-5.1); Sodium 142 mmol/L (135-145); Total Protein 6.9 g/dL (6.5-8.0); Triglycerides 114 mg/dL (<150)
[2024-06-28 09:27] LABS: TSH reflex Free T4 1.07 uIU/mL (0.32-4.0)
[2024-06-28 09:31] LABS: Creatinine Urine 466.21 mg/dL; Microalbum/Creatinine Ratio Ur 14.1 ug/mg cr (<30)
== END 2024-06-28 08:19 | disposition home or self-care (01) ==
LOC: HO.LAB 08:18
PROVIDERS: PCP Physician Assistant; Visit Provider Physician Assistant
DX: R74.8 Abnormal levels of other serum enzymes (principal); I10 Essential (primary) hypertension; E11.9 Type 2 diabetes mellitus without complications; Z13.220 Encounter for screening for lipoid disorders
CPT/HCPCS: 36415; 80048; 80061; 80076; 82043; 82570; 83036; 84443; 85025

== ENCOUNTER → 2024-08-19 07:42 | Outpatient (REF) | payer OTHER, SELFPAY ==
--- NOTE | 2024-08-19 07:45 | CA_ITS ---
Transthoracic Echocardiogram Patient (Last, First, Middle): Hannah Moss M Gender: Female Date of : 1955 Age: 69 Procedure Date: 08/19/2024 Procedure Type: Transthoracic Echocardiogram Location: OP Height: 167. cm Weight: 72.58 kg BSA: 1.81 m2 Heart Rate: 70 bpm BP: 138 / 75 mmHg Philanthropy Officer: SAVANNA Solo MD: Carri PONCE Deposit Refund Clerk: Aleks Velez MD Symptoms: R01.1 - Cardiac murmur, unspecified Study Quality: Adequate ECG Rhythm: Sinus Conclusions: - 1. Hyperdynamic LV ejection fraction. In 70% with impaired relaxation filling pattern 2. Calcific aortic and mitral valve changes noted with possibly early mild aortic stenosis 3. Normal RV systolic pressure 4. No gross pericardial effusion Findings Left Ventricle Normal left ventricular cavity size. There is normal left ventricular wall thickness. The left ventricular systolic function is hyperdynamic. The visually estimated ejection fraction is >70%. Spectral Doppler is indicative of an impaired relaxation filling pattern. E/E prime ratio is between 8 and 15 consistent with indeterminate filling pressures. Right Ventricle Normal right ventricular cavity size and systolic function. Atria Both atria are normal in size. There is no evidence of interatrial shunt. Aortic Valve There is mild calcification of the aortic valve. There is moderate thickening of the aortic valve. There is no aortic valve stenosis. There is no aortic valve regurgitation. Mitral Valve There is mild anterior and posterior mitral leaflet thickening. There is mild mitral annular calcification. There is trace mitral valve regurgitation. There is no mitral valve stenosis. Pulmonic Valve The pulmonic valve is likely normal. There is trace pulmonic valve regurgitation. Tricuspid Valve Normal tricuspid valve structure. There is trace tricuspid valve regurgitation. The right ventricular systolic pressure is normal. The right ventricular systolic pressure is 34 mmHg. Normal right atrial pressure. There is no evidence of pulmonary hypertension. Great Vessels All visible segments of the aorta are normal in size. The pulmonary artery was not well visualized. There is no dilatation of the ascending aorta measuring 3.30 cm. Venous The inferior vena cava is normal in size and collapses greater than 50% with inspiration. Pericardium/Pleural There is no evidence of pericardial effusion. Prior Study Comparison No prior study available for comparison. Measurements 2D Linear Measurements IVSd: 0.99 0.6-0.9/0.6-1.0 cm LVIDd: 3.77 3.9-5.3/4.2-5.9 cm LVIDd Index: 2.08 2.4-3.2/2.2-3.1 cm/m2 LVIDs: 2.07 2.0-3.6 cm LVPWd: 1.00 0.7-1.1 cm LA Diam: 3.40 2.7-3.8/3.0-4.0 cm LAIDs Index: 1.88 1.5-2.3 cm/m2 LV Mass: 142.81 67-162/88-224 g LV Mass Index: 78.90 43-95/49-115 g/m2 LVOT Diam: 1.90 3.0+(-)1.3 cm 2D Systolic Function EF 4C: 76.20 >55% EF 2C: 81.50 >55% EF BiP: 79.20 >55% Mitral Valve MV Pk E: 1.10 MV PK A: 1.41 MV Decel Time: 300.00 E/A: 0.80 E'Lateral: 7.83 E'Medial: 7.72 E/E' Med: 14.20 E/E' Lat: 14.00 PHT: 88.00 MVA PHT: 2.50 Decel [place]: 3.67 Aortic Valve AoV Pk Billy: 1.60 AoV Mn Billy: 1.15 AoV VTI: 0.37 AoV Pk Grad: 10.00 Aov Mn Grad: 6.00 JULIO CÉSAR Cont.VTI: 2.10 LVOT LVOT Pk Billy: 1.16 LVOT Mn Billy: 0.86 LVOT VTI: 0.28 LVOT Pk Grad: 5.00 LVOT Mn Grad: 3.00 LVOT Diam: 1.90 LVOT Area: 2.84 Diastolic Function MV Pk E: 1.10 MV Pk A: 1.41 E/A: 0.80 E'Medial: 7.72 E/E' Med: 14.20 E' Laterial: 7.83 E/E' Lat: 14.00 Right Ventricle TAPSE (mm): 31.30 TVS' Billy: 14.40 Tricuspid Valve TR Pk Billy: 2.77 TR Pk Grad: 31.00 RA Press: 3.00 RVSP: 34.00 Great Vessels Aorta Sinus of Valsalva: 2.70 2.0-3.5 cm Ao Asc: 3.30 2.1-3.4 cm Ao Arch: 2.30 Pulmonary Valve PV Pk Billy: 1.37 Peak PV Grad: 8.00 Updated in Other Vendor System with Status of Final Aleks Velez MD electronically signed on 08/19/2024 4:13:59 PM with status of Final
== END ==
LOC: HO.CARD 07:42
PROVIDERS: PCP Physician Assistant; Visit Provider Physician Assistant
DX: R01.1 Cardiac murmur, unspecified (principal)
CPT/HCPCS: 93306

== ENCOUNTER → 2024-08-19 07:45 | Outpatient (BNV) | payer OTHER, SELFPAY | PROVIDERS: PCP Physician Assistant; Visit Provider Internal Medicine Cardiovascular Disease | DX: I35.8 Other nonrheumatic aortic valve disorders (principal); I34.81 Nonrheumatic mitral (valve) annulus calcification | CPT/HCPCS: 93306 ==

== ENCOUNTER 2024-09-26 07:34 | Outpatient (REF) | payer OTHER, SELFPAY ==
--- OUTSIDE RECORDS SUMMARY | 2024-09-26 07:36 | XMS_ITS | Clinical Summary ---
Author Organization [facility] Address [address] [place] [id number] Phone Care Team Providers Care Investigative Agent Name Role Phone Clark Ayala MD Primary Care Provider Allergies No known active allergies Medications atenolol (TENORMIN) 25 MG tablet Take 1 tablet by mouth every morning. 10/11/2023 Active glipiZIDE (GLUCOTROL XL) 2.5 MG 24 hr tablet Take 1 tablet by mouth every morning. 11/26/2023 Active hyoscyamine (ANASPAZ,LEVSIN ) 0.125 mg tablet Take 1 tablet by mouth 2 (two) times a day. 11/24/2023 Active meloxicam (MOBIC) 15 MG tablet TAKE 1 TABLET BY MOUTH EVERY DAY WITH FOOD NEEDED FOR PAIN 12/08/2023 Active methylPREDNISol one (MEDROL DOSEPACK) 4 mg tablet as directed. 01/08/2024 Active traZODone (DESYREL) 50 MG tablet Take 50 mg by mouth nightly at bedtime. at bedtime. 11/26/2023 Active Social History Tobacco Use Types Packs/Day Years Used Date Smoking Tobacco: Never Assessed Education Answer Date Recorded Are you interested in more education? Not on seng e 01/13/2024 Are you concerned about learning? Not on file 01/13/2024 No 01/13/2024 No 01/13/2024 Digital Access Answer Date Recorded No 01/13/2024 No 01/13/2024 Reliable internet access at home? Not on file 01/13/2024 Device with a working camera? Not on file Comments Unknown Sex and Gender Information Value Date Recorded Sex Assigned at Not on file Legal Sex Female 1:16 PM EST Gender Identity Not on file Sexual Orientation Not on file Last Filed Vital Signs Vital Sign Reading Time Taken Comments Blood Pressure 156/96 01/13/2024 1:30 PM EST Pulse 76 01/13/2024 1:30 PM EST Temperature 35.9 C (96.7 F) 01/13/2024 1:30 PM EST Respiratory Rate 18 01/13/2024 1:30 PM EST Oxygen Saturation 96% 01/13/2024 1:30 PM EST Inhaled Oxygen Concentration - - Weight - - Height - - Body Mass Index - - Plan of Treatment Health Maintenance Due Date Last Done Comments Adult Td,Tdap Booster 1955 LIPID PANEL 1955 DEPRESSION SCREENING 1966 SMOKING Hx and SMOKELESS TOBACCO SCREENING 1967 HEPATITIS C SCREENING 02/29/1972 MAMMOGRAM 1994 COLOGUARD 1999 COLONOSCOPY 1999 COLORECTAL CANCER SCREENING 1999 FIT TEST 1999 FOBT 1999 SIGMOIDOSCOPY 1999 VIRTUAL COLONOSCOPY 1999 PNEUMOCOCCAL VACCINES (50+ years) (1 of 1 - PCV) 02/29/2004 ZOSTER VACCINES (1 of 2) 02/29/2004 OSTEOPOROSIS SCREENING INITI AL (ONE-TIME) 2019 COVID-19 VACCINE (3 - 2023-2 5 season) 2023 06/23/2020, 05/26/2020 RSV VACCINE (1 - 1-dose 75+ series) 2029 HEPATITIS A VACCINES Aged Out No long er eligible based on patient's age to complete this topic HIB VACCINES Aged Out No longer eligi ble based on patient's age to complete this topic MENINGOCOCCAL VACCINES (ACWY) Aged Out No longer eligible based on patient's age to complete this topic MENINGOCOCCAL VACCINES (B) Aged Out N o longer eligible based on patient's age to complete this topic Medical Devices Not on file Insurance [facility] Care Teams Investigative Agent Relationship Specialty Start Date End Date Clark Ayala MD [address] [place] [address] [place] [address] PCP - General Internal Medicine 01/13/24 Additional Source Comments The information contained in this document represents components of the legal health record. It is not the complete legal health record.[facility]
[2024-09-26 08:47] LABS: Hemoglobin A1C 243.0804 umol/L; Total Hemoglobin (HGBA1C) 3466.4831 umol/L
== END 2024-09-26 07:35 | disposition home or self-care (01) ==
LOC: HO.LAB 07:34
PROVIDERS: PCP Physician Assistant; Visit Provider Physician Assistant
DX: E11.9 Type 2 diabetes mellitus without complications (principal)
CPT/HCPCS: 36415; 83036

== ENCOUNTER 2024-09-30 07:59 | Outpatient (AMB) | payer OTHER, SELFPAY ==
--- OUTSIDE RECORDS SUMMARY | 2024-09-30 08:02 | XMS_ITS | Clinical Summary ---
Author Organization [facility] Address [address] [place] [phone] Phone Care Team Providers Care Window Dresser Name Role Phone Clark Ayala MD Primary [...] topic Medical Devices Not on file Insurance [facility] Care Teams Window Dresser Relationship Specialty Start Date End Date Clark Ayala MD [address] [place] [address] [place] [address] PCP - General Internal Medicine 01/13/24 Additional Source Comments The information contained in this document represents components of the legal health record. It is not the complete legal health record.[facility]
--- NOTE | 2024-09-30 08:03 | MHC.PC.OV ---
Vital Signs 09/30/24 08:07 Height 5 ft 4 in Weight 75.75 kg BMI 28.7 BP 140/72 H Respiration 16 Pulse 69 Pulse Source Pulse Oximeter Temp 97.7 F Temp Source Temporal Artery Scan Pulse Oximetry (%) 98 Oxygen Delivery Method Room Air Intake Visit Reasons: 3 Month F/U - see comments Gear Cutting Machine Operator Required: No Accompanied by: Self / Same As Patient Allergies sulfamethoxazole (From BACTRIM) Allergy (Intermediate, Verified 09/30/24 08:03) HIVES trimethoprim (From BACTRIM) Allergy (Intermediate, Verified 09/30/24 08:03) HIVES Sulfa (Sulfonamide Antibiotics) Allergy (Unknown, Verified 09/30/24 08:03) Hives Medication List - Last Reconciled 09/30/24 by KRIS Maya atenolol 1 tab PO DAILY azelastine 1 spray intranasal BID cetirizine (Zyrtec) 10 mg PO DAILY PRN empagliflozin (Jardiance) 25 mg PO DAILY fluticasone propionate 50 mcg/actuation 1 spray intranasal BID glipizide ER 10 mg PO DAILY hyoscyamine sulfate 0.125 mg PO BID meloxicam mg PO DAILY omeprazole 40 mg PO DAILY trazodone 50 mg PO BEDTIME HPI HPI Comments History of Present Illness Details 69 year old male with history of type 2 diabetes with left lower extremity venous ulcer, htn, gerd, osteoarthritis presents to the office today for routine follow-up. Type 2 diabetes-hemoglobin A1c improved to 8.6%. She reports fasting glucose levels do fluctuate, typically 150-175. She states that she does try to follow diabetic diet but is very inconsistent with this. She has been unable to tolerate metformin but is taking glipizide 10 mg daily ER. Hypertension-initial blood pressure 140/72, 122/74 on recheck. Compliant with atenolol Wound of the left foot-much improved, recently had wound VAC removed. Following with wound clinic weekly. No erythema or warmth. No drainage. No fevers. Right shoulder-currently going through PT and following with orthopedics. Cortisone injection deferred due to wound as above. ROS: General: No fevers, malaise, unintentional weight loss HEENT: No blurred vision, diplopia. No sore throat, nasal congestion, rhinorrhea, sinus pain, ear pain Cardiovascular: No chest pain, palpitations, or leg edema Respiratory: No shortness of breath, wheezing, cough GI: No abdominal pain, nausea, vomiting, diarrhea, constipation, melena, hematochezia : No dysuria, hematuria, increased urinary frequency, decreased urinary output MSK: No myalgia, back pain Neuro: No headaches, weakness, paresthesias Skin: See HPI EXAM: Constitutional - Awake and Alert, No apparent distress Eyes - PERRL Cardiovascular - S1S2, RRR, No edema Respiratory - Normal lung expansion, Normal respiratory effort, No respiratory distress, CTA bilaterally Extremities - no calf tenderness bilaterally, no swelling Skin - Warm/Dry. Wound L foot with dressing Neurological - Alert & oriented x3 Psychological - Appropriate affect [facility] Medical History (Updated 09/30/24 @ 08:36 by KRIS Maya) Osteoarthritis of right knee Venous ulcer of left leg Elevated liver enzymes GERD (gastroesophageal reflux disease) Type 2 diabetes mellitus Environmental allergies Murmur, cardiac Seasonal allergies Arthritis Hx of cervical cancer IBS (irritable bowel syndrome) Diabetes Hypertension Surgical History (Updated 06/19/24 @ 18:19 by Manda Lee) Hx of colonoscopy (~03/14/21) Hx of cholecystectomy History of total abdominal hysterectomy Social History (Updated 03/09/21 @ 10:20 by Elza Palacio RN) Are you a primary vehicle care specialist to a significant other at home: No Do you presently have visiting nurse or other home services: No Patient Tobacco Use Status: Never used Tobacco Questionnaire PHQ-9 Over the last 2 weeks, how often have you been bothered by any of the following problems? 1. Little interest or pleasure in doing things: not at all 2. Feeling down, depressed, or hopeless: not at all 3. Trouble falling or staying asleep, or sleeping too much: not at all 4. Feeling tired or having little energy: not at all 5. Poor appetite or overeating: not at all 6. Feeling bad about yourself - or that you are a failure or have let yourself or your family down: not at all 7. Trouble concentrating on things, such as reading the newspaper or watching television: not at all 8. Moving or speaking so slowly that other people could have noticed. Or the opposite - being so fidgety or restless that you have been moving around a lot more than usual: not at all 9. Thoughts that you would be better off or of hurting yourself in some way: not at all Total score: 0 Source: Developed by Drs. Lanre Dale, Marcelle Alexis, Alexis Khan and colleagues, with an educational gonzalo from [employer]. Thrive Questionnaire Date Thrive assessed: 09/30/24 I am a: Patient What is your living situation today?: I have a steady place to live Within the past 12 months, did the food you bought not last and you didn't have the money to get more?: Never true Within the past 12 months, did you worry whether your food would run out before you got money to buy more?: Never true Do you have trouble paying for medicines?: No Do you have trouble getting transportation to medical appointments?: No Do you have trouble paying your heating and electricity bill?: No Do you have trouble taking care of your child, family member or friend?: No Do you have trouble with day-to-day activities such as bathing, preparing meals, shopping, managing finances, etc.?: No Are you currently unemployed and looking for a job?: No Are you interested in more education?: No Please select the resources that you would like help with: None THRIVE Score: 0 GROVER-7 AMB Questionnaire GROVER-7 Date GROVER - 7 assessed: 09/30/24 Feeling nervous, anxious, or on edge: 0 = Not at all Not being able to stop or control worryin = Not at all Worrying too much about different things: 0 = Not at all Trouble relaxin = Not at all Being so restless that it is hard to sit still: 0 = Not at all Becoming easily annoyed or irritable: 0 = Not at all Feeling afraid as if something awful might happen: 0 = Not at all Total GROVER-7 score (0-4 normal; 5-9 mild; 10-14 moderate; 15-21 severe): 0 Source: Developed by Drs. Lanre Dale, Marcelle Alexis, Alexis Khan and colleagues, with an educational gonzalo from [employer]. Physical exam (Primary Care) Vital Signs: Last Vital Signs Temp 97.7 F 09/30/24 08:07 Pulse 69 09/30/24 08:07 Resp 16 09/30/24 08:07 BP 140/72 H 09/30/24 08:07 Pulse Ox 98 09/30/24 08:07 Oxygen Delivery Method Room Air 09/30/24 08:07 BMI result Body Mass Index 28.7 Tobacco/Smoking Status: Tobacco use Status Patient Tobacco Use Status Never used Tobacco 09/30/24 08:09 Coding Level of Care Code Est Pt Level 4 (57825) Complex EM visit Add On G2211 Diagnoses Type 2 diabetes mellitus E11.9 Hypertension I10 Bursitis of left shoulder M75.52 Venous ulcer of left leg I83.029; L97.929 Assessment & Plan Assessment & Plan (1) Type 2 diabetes mellitus: Code(s): E11.9 - Type 2 diabetes mellitus without complications Category: Medical Plan: Improved but remains uncontrolled. Add Jardiance 25 mg daily. Continue glipizide 10 mg ER. Counseled on diabetic diet. Annual eye exams and foot exams. Not interested in GLP 1 medications. Intolerant of metformin (2) Hypertension: Code(s): I10 - Essential (primary) hypertension Category: Medical Plan: Controlled on recheck. Continue atenolol. Low-sodium diet (3) Bursitis of left shoulder: Code(s): M75.52 - Bursitis of left shoulder Category: Medical Plan: Improving with physical therapy. Continue with orthopedics and physical therapy. Continue with exercises at home as well (4) Venous ulcer of left leg: Code(s): I83.029 - Varicose veins of left lower extremity with ulcer of unspecified site; L97.929 - Non-pressure chronic ulcer of unspecified part of left lower leg with unspecified severity Category: Medical Plan: Healing well. Continue following with [facility]ound [facility] Plan Follow-up in the office in 3 months with labs completed prior to visit. Orders: Orders Basic Metabolic Panel 3 Months E11.9 - Type 2 diabetes mellitus without complications, I10 - Essential (primary) hypertension, R74.8 - Abnormal levels of other serum enzymes, S81.802A - Unspecified open wound, left lower leg, initial encounter Hemoglobin A1c 3 Months E11.9 - Type 2 diabetes mellitus without complications, I10 - Essential (primary) hypertension, R74.8 - Abnormal levels of other serum enzymes, S81.802A - Unspecified open wound, left lower leg, initial encounter Liver Panel 3 Months E11.9 - Type 2 diabetes mellitus without complications, I10 - Essential (primary) hypertension, R74.8 - Abnormal levels of other serum enzymes, S81.802A - Unspecified open wound, left lower leg, initial encounter Lipid Panel 3 Months E11.9 - Type 2 diabetes mellitus without complications, I10 - Essential (primary) hypertension, R74.8 - Abnormal levels of other serum enzymes, S81.802A - Unspecified open wound, left lower leg, initial encounter Complete Blood Count Auto Diff 3 Months E11.9 - Type 2 diabetes mellitus without complications, I10 - Essential (primary) hypertension, R74.8 - Abnormal levels of other serum enzymes, S81.802A - Unspecified open wound, left lower leg, initial encounter Medications: New empagliflozin (Jardiance) 25 mg PO DAILY 90 tabs 1RF Changed From atenolol 1 tab PO DAILY To atenolol 25 mg PO DAILY 90 tabs 1RF
[2024-09-30 08:07] VITALS: BP 140/72; PULSE 69; RESP 16; TEMP 36.5; O2SAT 98; BMI 28.7
== END 2024-09-30 08:38 | disposition home or self-care (01) ==
LOC: HO.HMCHD 08:00
PROVIDERS: PCP Physician Assistant; Visit Provider Physician Assistant
DX: E11.9 Type 2 diabetes mellitus without complications (principal); I10 Essential (primary) hypertension; M75.52 Bursitis of left shoulder; I83.029 Varicose veins of left lower extremity with ulcer of unspecified site; L97.929 Non-pressure chronic ulcer of unspecified part of left lower leg with unspecified severity

== ENCOUNTER 2024-11-21 15:14 | Outpatient (AMB) | payer OTHER, SELFPAY ==
[2024-11-21 15:15] VITALS: BP 148/76; PULSE 67; TEMP 36.5; O2SAT 97; BMI 29.0
--- NOTE | 2024-11-21 15:15 | MHC.OFFWIV ---
Intake Vital Signs 11/21/24 15:15 Height 5 ft 4 in Weight 169 lb BMI 29.0 BP 148/76 H Blood Pressure Location Lt brachial Position Sitting Pulse 67 Pulse Source Pulse Oximeter Temp 97.7 F Temp Source Oral Pulse Oximetry (%) 97 Oxygen Delivery Method Room Air Intake Visit Reasons: EP-sinus infection Patient Tobacco Use Status: Never used Tobacco Allergies sulfamethoxazole (From BACTRIM) Allergy (Intermediate, Verified 11/21/24 15:23) HIVES trimethoprim (From BACTRIM) Allergy (Intermediate, Verified 11/21/24 15:23) HIVES Sulfa (Sulfonamide Antibiotics) Allergy (Unknown, Verified 11/21/24 15:23) Hives Do you need a note to return to daycare/school/sports/work: No HPI HPI Comments History of Present Illness Details History - The patient is a 69-year-old female presenting with symptoms of sinusitis. - Symptoms began on November 12, with fluid in the ears and headache, persisting for 10 days. - No cough, shortness of breath, wheezing, or fever reported. - Underwent nasal surgery for cancer in mid-October, leading to post-surgical swelling. - Augmentin was used prophylactically post-surgery without addressing current symptoms. - Current management includes Flonase, a prescription nasal spray, and saline rinses. - Patient states she usually needs a Zpak for her sinusitis and prednisone which she used to get from Dr Dunaway. Physical Exam General: Cooperative, healthy appearing, comfortable and no acute distress Orientation/consciousness: Patient oriented x3 Limitations: No limitations Head: Normal to inspection Ears: Hearing grossly normal bilaterally, external ears normal, TMs normal bilaterally Nose: Normal external nose present, right nare with healed scar, No nasal discharge present Face and sinus: Normal facial exam, sinus tenderness Mouth: Normal oral and palatal mucosa present and moist mucous membranes Throat: Yes tonsils normal, Yes uvula midline. Posterior oropharynx erythema, no exudates Eyes: Appearance normal, both eyes and all related structures Neck: Normal visual inspection, full ROM Respiratory: Normal respiratory effort, able to speak in complete sentences Skin: No rashes or lesions noted Neuro: Patient oriented x3 Extremities: Normal to inspection and Yes no clubbing, cyanosis or edema Review of Systems - Ears, Nose, Throat: Reports fluid in ears, headache, and congestion. Denies cough, shortness of breath, wheezing, or fever. All systems reviewed and are unremarkable except as noted in HPI [facility] Medical History (Updated 11/21/24 @ 15:49 by Emma Jerome PA-C) Osteoarthritis of right knee Venous ulcer of left leg Elevated liver enzymes GERD (gastroesophageal reflux disease) Type 2 diabetes mellitus Environmental allergies Murmur, cardiac Seasonal allergies Arthritis Hx of cervical cancer IBS (irritable bowel syndrome) Diabetes Hypertension Surgical History (Updated 06/19/24 @ 18:19 by Manda Lee) Hx of colonoscopy (~03/14/21) Hx of cholecystectomy History of total abdominal hysterectomy Social History (Updated 03/09/21 @ 10:20 by Elza Palacio, LONNIE) Are you a primary daycare assistant to a significant other at home: No Do you presently have visiting nurse or other home services: No Patient Tobacco Use Status: Never used Tobacco Physical Exam Vital Signs: Last Vital Signs Temp 97.7 F 11/21/24 15:15 Pulse 67 11/21/24 15:15 BP 148/76 H 11/21/24 15:15 Pulse Ox 97 11/21/24 15:15 Oxygen Delivery Method Room Air 11/21/24 15:15 BMI result Body Mass Index 29.0 Assessment & Plan Assessment & Plan (1) Acute bacterial sinusitis: Code(s): J01.90 - Acute sinusitis, unspecified; B96.89 - Other specified bacterial agents as the cause of diseases classified elsewhere Plan: Plan Patient was informed and verbally consented to the use of an ambient scribe for clinic note documentation during this visit. 1. Sinusitis - VSS, pt well appearing and PE remarkable for sinus tenderness - Prescribed Z-Jasvir (Azithromycin) due to persistence of symptoms for 10 days, indicating possible bacterial infection. - Advised to continue using Flonase and prescription nasal spray for symptom management. - Recommended use of a neti pot with distilled water for nasal irrigation. Medications: New azithromycin For 250 mg dose pack: take 500 mg today (day 1), then 250 mg for 4 days (days 2-5) PO 6 tabs 0RF methylprednisolone PO PER PKG DIR for 6 days 21 ea 0RF Coding Level of Care Code Est Pt Level 3 (97354) Diagnoses Acute bacterial sinusitis J01.90; B96.89
== END 2024-11-21 15:39 | disposition home or self-care (01) ==
PROVIDERS: PCP Physician Assistant; Visit Provider Physician Assistant
DX: J01.90 Acute sinusitis, unspecified (principal); B96.89 Other specified bacterial agents as the cause of diseases classified elsewhere

== ENCOUNTER 2024-12-10 11:30 | Outpatient (RCR) | payer OTHER, SELFPAY | END 2024-12-10 16:47 | disposition home or self-care (01) | LOC: HO.WCC 11:30 | PROVIDERS: PCP Internal Medicine; Visit Provider Surgery Surgical Oncology | DX: S81.812D Laceration without foreign body, left lower leg, subsequent encounter (principal); I87.322 Chronic venous hypertension (idiopathic) with inflammation of left lower extremity; X58.XXXD Exposure to other specified factors, subsequent encounter; Z92.3 Personal history of irradiation; Z79.84 Long term (current) use of oral hypoglycemic drugs | CPT/HCPCS: 11042; 97597; 97605; 97607; 99212; 99213 ==

== ENCOUNTER 2024-12-20 08:43 | Outpatient (REF) | payer OTHER, SELFPAY ==
--- OUTSIDE RECORDS SUMMARY | 2024-12-20 08:45 | XMS_ITS | Clinical Summary ---
Author Organization [facility] Address [address] [facility] [address] [place] [phone] Phone Care Team Providers Care Supervisor Painting Name Role Phone Clark Ayala MD Primary [...] 02/29/2004 OSTEOPOROSIS SCREENING INITI AL (ONE-TIME) 2019 INFLUENZA VACCINE (#1) 2024 COVID-19 VACCINE (3 - 2024-2 6 season) 2024 06/23/2020, 05/26/2020 RSV VACCINE (1 - 1-dose [...] topic Medical Devices Not on file Insurance [facility] [place] [address] [facility] Rossana [place] [facility] Member Subscriber Plan / Payer (Ef fective 2023-Present) Name:Nurys Mosshleen Relation to Subscriber:Self Name:Hannah Moss Payer ID:Not on file Type:O Address: [place] [id number] Care Teams Supervisor Painting Relationship Specialty Start Date End Date Clark Ayala MD [address] [place] [address] [place] [address] PCP - General Internal Medicine 01/13/24 Additional Source Comments The information contained in this document represents components of the legal health record. It is not the complete legal health record.[facility]
== END 2024-12-20 08:44 | disposition home or self-care (01) ==
LOC: HO.MAMMO 08:43
PROVIDERS: PCP Physician Assistant; Visit Provider Internal Medicine
DX: Z12.31 Encounter for screening mammogram for malignant neoplasm of breast (principal)
CPT/HCPCS: 77063; 77067

== ENCOUNTER → 2024-12-20 09:15 | Outpatient (BNV) | payer OTHER, SELFPAY | PROVIDERS: PCP Physician Assistant; Visit Provider Internal Medicine | DX: Z12.31 Encounter for screening mammogram for malignant neoplasm of breast (principal) | CPT/HCPCS: 77063; 77067 ==

== ENCOUNTER 2024-12-23 07:52 | Outpatient (AMB) | payer OTHER, SELFPAY ==
--- OUTSIDE RECORDS SUMMARY | 2024-12-18 23:59 | XMS_ITS | Continuity of Care Document ---
Author Organization [facility] Address [address] [place] [address] [address] [place] [address]- Care Team Providers Care Secretary To The Vice President Name Role Phone Clark Ayala MD Primary Care Physician [phone] Encounter [facility] Date(s): 11/18/24 - 12/18/24 [facility] [address] [place] [id number]- Encounter Type: Triage Allergies, Adverse Reactions, Alerts Substance Criticality Severity Reaction Reaction Severity Status Bactrim hives sneezing Activ e Other Environmental Allergy sneezing to outdoor allergies Active Immunizations Given and Recorded Vaccine Date Status Refusal Reason SARS-CoV-2 (COVID-19) mRNA-1273 vaccine 06/23/20 R ecorded SARS-CoV-2 (COVID-19) mRNA-1273 vaccine 05/26/20 R ecorded Medications atenolol 25 mg oral tablet 25 mg, 1, tablet, By Mouth, Daily, # 180 tablet, Refills 0, Maintenance, 03/24/16 3:03:35 PM EST Start Date: 03/24/16 Status: Ordered Medication Dispense Status: Completed Quantity: 180.0 Unit: tablet Total Allowed Fills: 1 Fills Dispensed: 0 glipiZIDE 2.5 mg oral tablet, extended release 1 tablet = 2.5 mg, By Mouth, Daily, # 30 tablet, 0 Refills, Maintenance, 01/24/21 8:05:00 AM EST, ER Tablet, Partial fill upon patient request if the prescription is for a schedule II opioid drug. Start Date: 01/24/21 Status: Ordered Medication Dispense Status: Completed Quantity: 30.0 Unit: tablet Total Allowed Fills: 1 Fills Dispensed: 0 hyoscyamine 0.125 mg oral tablet 0.125 mg, 1, tablet, By Mouth, 4 times a day, PRN, # 40 tablet, Refills 0, Maintenance, for spasm, 01/24/21 8:05:00 AM EST, Partial fill upon patient request if the prescription is for a schedule II opioid drug. Start Date: 01/24/21 Status: Ordered Medication Dispense Status: Completed Quantity: 40.0 Unit: tablet Total Allowed Fills: 1 Fills Dispensed: 0 meloxicam 15 mg oral tablet 1 tablet = 15 mg, By Mouth, Daily, # 30 tablet, 0 Refills, Maintenance, 03/24/16 3:09:25 PM EST, Tablet Start Date: 03/24/16 Status: Ordered Medication Dispense Status: Completed Quantity: 30.0 Unit: tablet Total Allowed Fills: 1 Fills Dispensed: 0 Omeprazole = 40 mg, By Mouth, Daily, 0 Refills, Maintenance, 06/23/24 3:26:00 PM EDT, Partial fill upon patientrequest if the prescription is for a schedule II opioid drug. Start Date: 06/23/24 Status: Ordered Medication Dispense Status: Completed Total Allowed Fills: 1 Fills Dispensed: 0 traZODone 50 mg oral tablet 1 tab, By Mouth, Daily at bedtime, # 15 tablet, Refills 0, Maintenance, 03/24/16 3:03:51 PM EST Start Date: 03/24/16 Status: Ordered Medication Dispense Status: Completed Quantity: 15.0 Unit: tablet Total Allowed Fills: 1 Fills Dispensed: 0 Vitamin D3 By Mouth, 0 Refills, Maintenance, 05/07/18 8:31:26 AM EDT Start Date: 05/07/18 Status: Ordered Medication Dispense Status: Completed Total Allowed Fills: 1 Fills Dispensed: 0 Zyrtec-D 1 tablet, By Mouth, Daily, 0 Refills, Maintenance, 03/24/16 3:06:53 PM EST Start Date: 03/24/16 Status: Ordered Medication Dispense Status: Completed Total Allowed Fills: 1 Fills Dispensed: 0 Problem List Condition Confirmation Course Effective Dates Status Health St atus Informant History of endometrial cancer Confirmed Active Endometrial cancer Confirmed Active Social History Social History Type Response Smoking Status Never (less than 100 in lifetime) entered on: 10/29/24 Sex Sex Representation Female (finding) Implantable Device List Procedure Provider Procedure Date Device Type Site Reconstruction with Flap Refugio SU, Sher Mcgowan 11/05/24 Unk nown Nose Device Identifier Serial Number Lot or Batch Number Manufacturing Date Expiration Date Distinct Identification Code MRI Safety Implantable Status Assigning Authority Unknown [id number] Unknown Unknown 07/30/26 Unknown Unknown Active Unknown Patient Care team information Care Team Personnel Name: Clark Ayala MD Position: [facility] Outreach Member Role: PCP Address: [address] [place] [address] Jamie SU [place], [place] [address] Telecom: Care Team Related Persons Name: PORTER LEE Insurance Providers Guarantor name: ANUPAM ODELL INSOMENIA [facility] Information #: 1 Payer: [employer] Payer Identifier: NA Member Number: [id number] Group Number: [id number] Subscriber Identifier: NA Relationship to Subscriber: self Coverage Type: NA Coverage Verification Date: NA Telecom: NA Address: [facility] Information #: 2 Payer: [employer] FF NON BHP HMO P Payer Identifier: NA Member Number: [id number] Group Number: [id number] Subscriber Identifier: NA Relationship to Subscriber: self Coverage Type: Other Private Insurance Coverage Verification Date: NA Telecom: NA Address:
--- OUTSIDE RECORDS SUMMARY | 2024-12-23 07:54 | XMS_ITS | Clinical Summary ---
Author Organization [facility] Address [address] [facility] [address] [place] [address] Phone Care Team Providers Care Psychology Professor Name Role Phone Clark Ayala MD Primary [...] on patient's age to complete this topic IPV VACCINES Aged Out No longer eligi ble based on patient's age to complete this topic MENINGOCOCCAL VACCINES (ACWY) Aged Out No longer eligible based on patient's age to complete this topic MENINGOCOCCAL VACCINES (B) Aged Out N o longer eligible based on patient's age to complete this topic Medical Devices Not on file Insurance [facility] [place] [facility] [place] [facility] Care Teams Psychology Professor Relationship Specialty Start Date End Date Clark Ayala MD [address] [place] [address] [place] [address] PCP - General Internal Medicine 01/13/24 Additional Source Comments The information contained in this document represents components of the legal health record. It is not the complete legal health record.[facility]
[2024-12-23 08:07] VITALS: BMI 28.5
--- NOTE | 2024-12-23 08:07 | A.OFFVIS_ITS ---
Vital Signs 12/23/24 08:07 Height 5 ft 4 in Weight 166 lb BMI 28.5 Intake Visit Reasons: wound care referral Intake Note: Hannah is a 69 year old female who presents today as a new patient for Diabetic foot exam. Patient states her glucose is currently at 150 and her last known A1c was 8.6%. Patient denies experiencing numbness or tingling in her feet currently and she has no previous medical history of wounds or amputations to her feet. She had a previous wound on her pryor that was being treated at [facility] [place] wound care center and has healed. Allergies sulfamethoxazole (From BACTRIM) Allergy (Intermediate, Verified 12/23/24 08:07) HIVES trimethoprim (From BACTRIM) Allergy (Intermediate, Verified 12/23/24 08:07) HIVES Sulfa (Sulfonamide Antibiotics) Allergy (Unknown, Verified 12/23/24 08:07) Hives HPI HPI wound care referral: Details: 69 y/o female past medical history of diabetes mellitus type 2 presents for annual diabetic evaluation. She has a history of a left leg wound sustained from a fall, which was treated [facility] for several months. The wound required surgical debridement and wound VAC therapy. The wound has since been healed and has not recurred. The patient denies any history of wounds her feet. She denies burning numbness or tingling. She states she was unable to see a electrical and instrumentation mechanic for routine care due to the left leg wound. [facility] Medical History (Updated 12/23/24 @ 08:56 by Cecil Bhatti DPM) Osteoarthritis of right knee Venous ulcer of left leg Elevated liver enzymes GERD (gastroesophageal reflux disease) Type 2 diabetes mellitus Environmental allergies Murmur, cardiac Seasonal allergies Arthritis Hx of cervical cancer IBS (irritable bowel syndrome) Diabetes Hypertension Surgical History (Updated 06/19/24 @ 18:19 by Manda Lee) Hx of colonoscopy (~03/14/21) Hx of cholecystectomy History of total abdominal hysterectomy Social History (Updated 03/09/21 @ 10:20 by Elza Palacio RN) Are you a primary child care nurse to a significant other at home: No Do you presently have visiting nurse or other home services: No Patient Tobacco Use Status: Never used Tobacco Review of Systems Const All systems reviewed & are unremarkable except as noted in HPI and below Physical Exam Vital Signs: BMI result Body Mass Index 28.5 Extrem Other: *Bilateral Lower Extremity Focused Diabetic Foot Exam Vascular: DP/PT 2/4, CFT<3s to digits, TG warm to cool, no pedal edema, pedal hair absent Derm: Skin: Healed wound to the left anterior leg. Interdigital spaces: Clear, no maceration or fungal infection. Nails: Thickened elongated dystrophic discolored toenails x 10 with subungual debris. Neuro: Orlando-shin monofilament (10g) test 10/10 intact to right foot, 10/10 intact to left foot. Msk: Deformities: No evidence of hammertoes, bunions, Charcot changes, or other structural abnormalities. Muscle strength: 5/5 in all muscle groups. Gait: Normal, no antalgic or steppage gait observed. Footwear Assessment: Shoes inspected; appropriate fit, no excessive wear, or foreign objects noted. Office Procedures AMB Debridement/Avulsion Podia Details: Procedure: Nail debridement Location: 10 nails, bilateral feet Anesthesia: N/A Description: The affected toenails were cleansed with an antiseptic solution. Using sterile nail nippers and a rotary cary, dystrophic and mycotic nail material was carefully debrided and reduced in thickness. Care was taken to avoid trauma to the surrounding skin and nail bed. All debris was removed as tolerated. The area was inspected for signs of infection or ulceration. Patient tolerated the procedure well without complications. Tolerance: Patient tolerated procedure well, no immediate complications. Class B findings as per physical exam findings above. The patient has a diagnosis of diabetes mellitus and presents with elongated, thickened toenails. Due to underlying diabetic neuropathy and mild vascular disease findings, the patient is at increased risk for complications such as ulceration, infection, and difficulty with self-care. Debridement of elongated toenails is medically necessary to prevent development of pressure-related lesions, reduce risk of secondary infection, and maintain foot health in high- risk comorbidities. 78021-Ymbhrinkbtf of Nail 6+ Procedure code (CPT) selection complete Results Reviewed Results Reviewed: Laboratory Tests 09/26/24 07:52 Hemoglobin A1c % 8.6 H Assessment & Plan Assessment & Plan (1) Type 2 diabetes mellitus: Code(s): E11.9 - Type 2 diabetes mellitus without complications Category: Medical Plan: Risk Stratification: No current ulceration, infection. Patient does have a pre-ulcerative lesion. No loss of protective sensation or large vessel peripheral arterial disease. No plans for further testing/referrals for non-invasive vascular studies. Patient is at moderate risk for diabetic foot complications at this time. Recommendations: Continue routine foot care and daily self-inspection. Recommend moisturizing daily. The patient requires diabetic shoes due to pre-ulcerative lesions to her left foot and history of left leg ulceration that took several months of treatment. She is referred for diabetic shoes with 3 pairs of Plastazote inserts with forefoot padding. Reinforced diabetic foot education and risks from peripheral neuropathy. (2) Metatarsalgia of both feet: Code(s): M77.41 - Metatarsalgia, right foot; M77.42 - Metatarsalgia, left foot Category: Medical Plan: * Referred for custom shoes (3) Onychogryphosis: Code(s): L60.2 - Onychogryphosis Category: Medical Plan: * Debrided elongated nails x 10 using a sterile nail Nipper (4) Callus of foot: Code(s): L84 - Corns and callosities Category: Medical Plan: * Debrided left foot hyperkeratotic lesion using a 15. Blade. * Rx amlactin Orders: Orders AMB Debridement/Avulsion Podiatry Today E11.9 - Type 2 diabetes mellitus without complications, L60.2 - Onychogryphosis Medications: New [Diabetic Shoes] Please dispense diabetic shoes with 3 pairs of custom molded inserts with forefoot padding. 1 ea 0RF E11.9 - Type 2 diabetes mellitus without complications, M77.41 - Metatarsalgia, right foot, M77.42 - Metatarsalgia, left foot, S81.802A - Unspecified open wound, left lower leg, initial encounter ammonium lactate 12% 1 appl topical DAILY 225 grams 5RF xerosis Coding Level of Care Code New Pt Level 4 (95326) Diagnoses Type 2 diabetes mellitus E11.9 Metatarsalgia of both feet M77.41; M77.42 Onychogryphosis L60.2 Callus of foot L84 CPT Codes Skin Debridement - CPT: 86852-Yqfvnqidjbo of Nail 6+ ([id number]) Time Spent (min) 30
== END 2024-12-23 08:31 | disposition home or self-care (01) ==
LOC: HO.HPODS 07:52
PROVIDERS: PCP Physician Assistant; Visit Provider Student in an Organized Health Care Education/Training Program
DX: E11.9 Type 2 diabetes mellitus without complications (principal); M77.41 Metatarsalgia, right foot; M77.42 Metatarsalgia, left foot; L60.2 Onychogryphosis; L84 Corns and callosities
CPT/HCPCS: 11721; 99204

== ENCOUNTER → 2024-12-23 07:52 | Outpatient (BNVA) | payer OTHER, SELFPAY | PROVIDERS: PCP Physician Assistant; Visit Provider Student in an Organized Health Care Education/Training Program | DX: E11.628 Type 2 diabetes mellitus with other skin complications (principal); L84 Corns and callosities; L60.2 Onychogryphosis; M77.41 Metatarsalgia, right foot; M77.42 Metatarsalgia, left foot; E11.40 Type 2 diabetes mellitus with diabetic neuropathy, unspecified | CPT/HCPCS: 11721 ==

== ENCOUNTER 2024-12-27 09:43 | Outpatient (REF) | payer OTHER, SELFPAY ==
[2024-12-27 09:52] LABS: MANUAL DIFF FLAG NO
--- OUTSIDE RECORDS SUMMARY | 2024-12-27 10:18 | XMS_ITS | Clinical Summary ---
Author Organization [facility] Address [address] [facility] [address] [place] [address] Phone Care Team Providers Care Repairer Switchgear Name Role Phone Clark Ayala MD Primary [...] Medical Devices Not on file Insurance [facility] [place] [facility] [place] [facility] Care Teams Repairer Switchgear Relationship Specialty Start Date End Date Clark Ayala MD [address] [place] [address] [place] [address] PCP - General Internal Medicine 01/13/24 Additional Source Comments The information contained in this document represents components of the legal health record. It is not the complete legal health record.[facility]
[2024-12-27 11:25] LABS: Hematocrit 43.1 % (37.0-47.0); Hemoglobin 14.8 g/dl (12.0-16.0); Imm Gran Abs Auto 0.04 X10*3/uL (0.00-0.03); Imm Gran Pct Auto 0.4 % (0.0-0.4); Lymphocytes Absolute Auto 2.6 X10*3/uL (1.2-4.9); Mean Corpuscular HGB Conc 34.3 g/dl (31.0-35.0); Mean Corpuscular Hemoglobin 30.8 pg (27.0-33.0); Mean Corpuscular Volume 89.8 fL (80.0-98.0); NRBC Abs Auto 0.000 X10*3/uL (0.0-0.012); NRBC Pct Auto 0.0 /100WBC (0.0-0.2); Platelet Count 238 X10*3/uL (160-400); Red Blood Count 4.80 X10*6/uL (4.20-5.50); White Blood Count 10.4 X10*3/uL (4.8-10.8)
[2024-12-27 11:43] LABS: Alanine Aminotransferase 88 U/L (0-31); Albumin Level 4.7 g/dL (3.5-5.0); Alkaline Phosphatase 107 U/L (39-117); Anion Gap 18 (12-20); Aspartate Amino Transferase 67 U/L (5-31); Blood Urea Nitrogen 21 mg/dL (9-16); Calcium 10.4 mg/dL (8.4-10.2); Carbon Dioxide 21 mmol/L (22-29); Chloride 110 mmol/L (96-108); Cholesterol 191 mg/dL (<200); Estimated Glomerular Filt Rate 48; HDL Cholesterol 59 mg/dL (>40); Potassium 4.0 mmol/L (3.3-5.1); Sodium 145 mmol/L (135-145); Total Protein 7.4 g/dL (6.5-8.0); Triglycerides 103 mg/dL (<150)
== END 2024-12-27 09:44 | disposition home or self-care (01) ==
LOC: HO.LAB 09:43
PROVIDERS: PCP Physician Assistant; Visit Provider Physician Assistant
DX: E11.9 Type 2 diabetes mellitus without complications (principal); I10 Essential (primary) hypertension; R74.8 Abnormal levels of other serum enzymes; S81.802A Unspecified open wound, left lower leg, initial encounter
CPT/HCPCS: 36415; 80048; 80061; 80076; 83036; 85025

== ENCOUNTER 2025-01-05 07:57 | Outpatient (AMB) | payer OTHER, SELFPAY ==
--- OUTSIDE RECORDS SUMMARY | 2025-01-05 07:59 | XMS_ITS | Clinical Summary ---
Author Organization [facility] Address [address] [facility] [address] [place] [address] Phone Care Team Providers Care Solar Energy Engineer Name Role Phone Clark Ayala MD Primary [...] on file Insurance [facility] [place] [address] [facility] Rossana [place], [place] [facility] Member Subscriber Plan / Payer (Ef fective 2023-Present) Name:Nurys Mosshleen Relation to Subscriber:Self Name:Hannah Moss Payer ID:Not on file Type:O Address: [place] [id number] Care Teams Solar Energy Engineer Relationship Specialty Start Date End Date Clark Ayala MD [address] [place] [address] [place] [address] PCP - General Internal Medicine 01/13/24 Additional Source Comments The information contained in this document represents components of the legal health record. It is not the complete legal health record.[facility]
--- NOTE | 2025-01-05 08:03 | MHC.PC.OV ---
Vital Signs 01/05/25 08:11 01/05/25 08:39 Height 5 ft 3.39 in Weight 73.936 kg BMI 28.5 BP 146/78 H 136/76 Blood Pressure Location Lt brachial Position Sitting Respiration 20 Pulse 65 Pulse Source Pulse Oximeter Temp 97.8 F Temp Source Temporal Artery Scan Pulse Oximetry (%) 96 Oxygen Delivery Method Room Air Intake Visit Reasons: Follow up / R/s'd from 12/30/24 - see comments Alternative Energy Engineer Required: No Accompanied by: Self / Same As Patient Allergies sulfamethoxazole (From BACTRIM) Allergy (Intermediate, Verified 01/05/25 08:03) HIVES trimethoprim (From BACTRIM) Allergy (Intermediate, Verified 01/05/25 08:03) HIVES Sulfa (Sulfonamide Antibiotics) Allergy (Unknown, Verified 01/05/25 08:03) Hives Medication List - Last Reconciled 01/05/25 by KRIS Maya ammonium lactate 12% (AmLactin) 1 appl topical DAILY atenolol 25 mg PO DAILY azelastine 1 spray intranasal BID cetirizine (Zyrtec) 10 mg PO DAILY PRN [Diabetic Shoes Please dispense diabetic shoes with 3 pairs of custom molded inserts with forefoot padding.] empagliflozin (Jardiance) 25 mg PO DAILY fluticasone propionate 50 mcg/actuation 1 spray intranasal BID hyoscyamine sulfate 0.125 mg PO BID PRN meloxicam mg PO DAILY omeprazole 40 mg PO DAILY trazodone 50 mg PO BEDTIME Tobacco use date assessed: 01/05/25 Fall risk assessment: 1 Fall in past year Last assessed Fall Risk: 01/05/25 Dental Screening Dental Screen Date: 01/05/25 Did you have a dental visit in the last 12 months?: Yes Did you have a dental problem in the last 6 months where you did not have access to dental care?: No Was dental information given to patient?: Patient has dentist HPI HPI Comments History of Present Illness Details 69 year old male with history of type 2 diabetes with left lower extremity venous ulcer, htn, gerd, osteoarthritis presents to the office today for routine follow-up. Type 2 diabetes-hemoglobin A1c worsened, now 9.7%. Fasting glucose around 180. Had previously been taking glipizide but this was ineffective so it was discontinued. She has been taking Jardiance but has gotten recurrent yeast infections and requesting discontinuation. She has been intolerant of metformin in the past. Peripheral vascular disease-wound of the left anterior tibia has resolved. No longer following with [facility]. She has been using ammonium lactate Hypertension-blood pressure on recheck 136/76. On atenolol 25 mg daily Basal cell carcinoma-following with [facility], Dr. [place]. Reason procedure 11/05 basal cell - 11/05. Dr Refugio ORTIZ derm Concerns: None ROS: General: No fevers, malaise, unintentional weight loss HEENT: No blurred vision, diplopia. No sore throat, nasal congestion, rhinorrhea, sinus pain, ear pain Cardiovascular: No chest pain, palpitations, or leg edema Respiratory: No shortness of breath, wheezing, cough GI: No abdominal pain, nausea, vomiting, diarrhea, constipation, melena, hematochezia : No dysuria, hematuria, increased urinary frequency, decreased urinary output MSK: No myalgia, back pain Neuro: No headaches, weakness, paresthesias Skin: See HPI EXAM: Constitutional - Awake and Alert, No apparent distress Eyes - PERRL Cardiovascular - S1S2, RRR, No edema Respiratory - Normal lung expansion, Normal respiratory effort, No respiratory distress, CTA bilaterally Extremities - no calf tenderness bilaterally, no swelling Skin - Warm/Dry. Wound L foot with dressing Neurological - Alert & oriented x3 Psychological - Appropriate affect [facility] Medical History (Updated 01/05/25 @ 12:54 by KRIS Maya) Hyperlipidemia Osteoarthritis of right knee Venous ulcer of left leg Elevated liver enzymes GERD (gastroesophageal reflux disease) Type 2 diabetes mellitus Environmental allergies Murmur, cardiac Seasonal allergies Arthritis Hx of cervical cancer IBS (irritable bowel syndrome) Diabetes Hypertension Surgical History (Updated 06/19/24 @ 18:19 by Manda Lee) Hx of colonoscopy (~03/14/21) Hx of cholecystectomy History of total abdominal hysterectomy Social History (Updated 03/09/21 @ 10:20 by Elza Palacio RN) Housing: Apartment Are you a primary care partner to a significant other at home: No Do you presently have visiting nurse or other home services: No Patient Tobacco Use Status: Never used Tobacco e-Cigarette/Vaping Use: Never Used service: No Current occupational status: employed 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 How often do you have a drink containing alcohol?: Monthly or less 2. How many drinks containing alcohol do you have on a typical day when you are drinking?: 1 or 2 3. How often do you have six or more drinks on one occasion?: Never Total Score: 1 GROVER-7 AMB Questionnaire GROVER-7 Date GROVER - 7 assessed: 09/30/24 Source: Developed by Drs. Lanre Dale, Marcelle Alexis, Alexis Khan and colleagues, with an educational gonzalo from [employer]. Physical exam (Primary Care) Vital Signs: Last Vital Signs Temp 97.8 F 01/05/25 08:11 Pulse 65 01/05/25 08:11 Resp 20 01/05/25 08:11 BP 136/76 01/05/25 08:39 Pulse Ox 96 01/05/25 08:11 Oxygen Delivery Method Room Air 01/05/25 08:11 BMI result Body Mass Index 28.5 Tobacco/Smoking Status: Tobacco use Status Tobacco use date assessed 01/05/25 01/05/25 08:13 Patient Tobacco Use Status Never used Tobacco 01/05/25 08:13 e-Cigarette/Vaping Use Never Used 01/05/25 08:13 Thrive Assessment: Date of Thrive Assessment Date Thrive assessed 09/30/24 01/05/25 08:13 Coding Level of Care Code Est Pt Level 4 (55902) Complex visit Add On G2211 Diagnoses Type 2 diabetes mellitus E11.9 Hypertension I10 Bursitis of left shoulder M75.52 Venous ulcer of left leg I83.029; L97.929 Hyperlipidemia E78.5 Assessment & Plan Assessment & Plan (1) Type 2 diabetes mellitus: Code(s): E11.9 - Type 2 diabetes mellitus without complications Category: Medical Plan: Worsening control. DC Jardiance given recurrent yeast infections. Has discontinued glipizide on her own. Trial glyburide 2.5 mg twice daily. Advised to check glucose levels, if they remain uncontrolled, reach out to the office and can increase to 5 mg twice daily. If control does not improve, we will need referral to endocrinology. Continue with annual eye exams and foot exams at podiatry. She is not agreeable to any injectable medications. Counseled on diabetic diet, declines referral to dietitian (2) Hypertension: Code(s): I10 - Essential (primary) hypertension Category: Medical Plan: Controlled on recheck. Continue atenolol. Low-sodium diet (3) Bursitis of left shoulder: Code(s): M75.52 - Bursitis of left shoulder Category: Medical Plan: Improving with physical therapy. Continue with orthopedics and physical therapy. Continue with exercises at home as well (4) Venous ulcer of left leg: Code(s): I83.029 - Varicose veins of left lower extremity with ulcer of unspecified site; L97.929 - Non-pressure chronic ulcer of unspecified part of left lower leg with unspecified severity Category: Medical Plan: Resolved. Continue ammonium lactate and recommend vitamin E for scarring (5) Hyperlipidemia: Code(s): E78.5 - Hyperlipidemia, unspecified Category: Medical Plan: Diet lower in saturated fats and highly processed foods Plan Follow-up in the office in 3 months with labs completed prior to visit. Orders: Orders Basic Metabolic Panel 3 Months E11.9 - Type 2 diabetes mellitus without complications, I10 - Essential (primary) hypertension, R74.8 - Abnormal levels of other serum enzymes Hemoglobin A1c 3 Months E11.9 - Type 2 diabetes mellitus without complications, I10 - Essential (primary) hypertension, R74.8 - Abnormal levels of other serum enzymes Complete Blood Count Auto Diff 3 Months E11.9 - Type 2 diabetes mellitus without complications, I10 - Essential (primary) hypertension, R74.8 - Abnormal levels of other serum enzymes Lipid Panel 3 Months E11.9 - Type 2 diabetes mellitus without complications, I10 - Essential (primary) hypertension, R74.8 - Abnormal levels of other serum enzymes Microalbumin, Random (w Creat) 3 Months E11.9 - Type 2 diabetes mellitus without complications, I10 - Essential (primary) hypertension, R74.8 - Abnormal levels of other serum enzymes Medications: New glyburide 2.5 mg PO BID 180 tabs 0RF azelastine 1 spray intranasal BID 30 mL 1RF Changed From hyoscyamine sulfate 0.125 mg PO BID 180 tabs 1RF To hyoscyamine sulfate 0.125 mg PO BID PRN Refilled trazodone 50 mg PO BEDTIME 90 tabs 1RF Patient Instructions: Pneumonia vaccine : PCV 20 or PCV 21 Ask for the RSV vaccine Try vitamin E for scarring [place] with diabetes association- [email or web address].org
[2025-01-05 08:11] VITALS: BP 146/78; PULSE 65; RESP 20; TEMP 36.6; O2SAT 96; BMI 28.5
[2025-01-05 08:39] VITALS: BP 136/76
== END 2025-01-05 08:50 | disposition home or self-care (01) ==
LOC: HO.HMCHD 07:57
PROVIDERS: PCP Physician Assistant; Visit Provider Physician Assistant
DX: E11.9 Type 2 diabetes mellitus without complications (principal); I10 Essential (primary) hypertension; M75.52 Bursitis of left shoulder; I83.029 Varicose veins of left lower extremity with ulcer of unspecified site; L97.929 Non-pressure chronic ulcer of unspecified part of left lower leg with unspecified severity; E78.5 Hyperlipidemia, unspecified